=== PATIENT | female | born 1985 | race Caucasian/White ===

== ENCOUNTER 2024-12-05 09:05 | Outpatient (OUT) | payer BC, SELFPAY ==
--- OUTSIDE RECORDS SUMMARY | 2024-12-04 11:00 | XMS_ITS | Encounter Summary ---
Author Organization [facility] Address [address] [place] [address] Care Team Providers Care Cad Intern Name Role Phone Kristie Yi NP Primary Care Provider [phone] Reason for Visit * Reason Comments Well Women Visit Encounter Details Date Type Department Care Team (Latest Contact Info) Description 12/04/2024 11:00 AM EDT Procedure Visit [facility] [address] [facility] [place] [address] Gerri Syed NP [address] [facility] [place] [address] Well woman exam with routine gynecological [...] AM EDT Ancillary Procedure [facility]OM[facility]utosh [facility] [address] [place] [address] 02/15/2025 9:50 AM EST Consult DION MURDOCK [address] [place] [phone] Dawson Arrieta DO [address] [facility] [address] [place], [facility]11 documented as of this encounter Visit Diagnoses Diagnosis Well woman exam with routine gynecological exam Routine gynecological examination Encounter for screening mammogram for malignant neoplasm of breast documented in this encounter Care Teams Cad Intern Relationship Specialty Start Date End Date Kristie Yi NP [address] [place] [id number] PCP - General 11/27/24 documented as of this encounter
--- OUTSIDE RECORDS SUMMARY | 2024-12-05 08:30 | XMS_ITS | Encounter Summary ---
Author Organization [facility] Address [address] [place] [address] Care Team Providers Care Bilingual Manager Name Role Phone Kristie Yi NP Primary Care Provider [phone] Reason for Visit * Reason Comments Well Women Visit Encounter Details Date Type Department Care Team (Latest Contact Info) Description 12/05/2024 8:30 AM EDT Procedure Visit [facility] [address] [facility] [place] [phone] Dawson Arrieta DO [address] [facility] [place] [address] Well woman exam with routine gynecological exam; [...] 12:00 PM EST documented in this encounter Plan of Treatment Upcoming Encounters Date Type Department Care Team (Late st Contact Info) Description 12/18/2024 10:30 AM EDT Ancillary Procedure DION MURDOCK [address] [place] [address] [place] [phone] 02/15/2025 9:50 AM EST Consult DION MURDOCK [address] [facility] [place] [address] Dawson Arrieta DO [address] [facility] [place] [address] Scheduled Orders Name Type Priority Associated Diagnoses [...] cycle documented in this encounter Care Teams Bilingual Manager Relationship Specialty Start Date End Date Kristie Yi NP 1 [place] [address] PCP - General 11/27/24 documented as of this encounter
--- OUTSIDE RECORDS SUMMARY | 2024-12-05 09:10 | XMS_ITS | Clinical Summary ---
Author Organization [facility] Address [address] [place] [address] Care Team Providers Care Paint Stock Clerk Name Role Phone Unavailable Primary Care Provider Unavailabl e Social History Tobacco Use Types Packs/Day Years Used Date Smoking Tobacco: Never Assessed Comments Unknown Sex and Gender Information Value Date Recorded Sex Assigned at Not on file Legal Sex Female 8:17 AM EST Gender Identity Not on file Sexual Orientation Not on file Plan of Treatment Health Maintenance Due Date Last Done Comments Anxiety Screening 09/28/2001 Depression Screening 09/28/2001 HIV Screening 09/28/2001 Hepatitis C Screening 09/28/2001 DTaP,Tdap,Td Vaccine (1 - Tdap) 09/28/2002 Hepatitis B Vaccine (1 of 3 - 19+ 3-dose series) 09/28 Cervical Cancer Screening 09/28/2004 HPV Vaccine (1 - 3-dose SCDM series) 09/28/2010 Mammogram Screening 2023 Influenza Vaccine (#1) 2024 Insurance [employer] PPO
--- OUTSIDE RECORDS SUMMARY | 2024-12-05 09:10 | XMS_ITS | Encounter Summary ---
Author Organization [facility] Address [address] [place] [address] Care Team Providers Care Breast Puller Name Role Phone Kristie Yi POST COMMANDER Primary Care Provider [phone] Encounter Details Date Type Department Care Team (Late st Contact Info) Description 12/04/2024 Bamboo flowsheet NOMAshutosh MURDOCK [address] [place] [address] Gerri Syed, JOHNY [address] [facility] [place] [address] Social History Tobacco Use Types Packs/Day Years Used Date Smoking Tobacco: Never Assessed Comments Unknown Sex and Gender Information Value Date Recorded Sex Assigned at Female 10/14/2022 3:27 PM EDT Legal Sex Female 6:35 PM EDT Gender Identity Female 10/14/2022 3:27 PM EDT Sexual Orientation Straight 10/14/2022 3: 27 PM EDT documented as of this encounter Plan of Treatment Upcoming Encounters Date Type Department Care Team (Late st Contact Info) Description 12/18/2024 10:30 AM EDT Ancillary Procedure [facility] [address] [facility] [address] 02/15/2025 9:50 AM EST Consult NOMAshutosh MURDOCK [address] [place] [address] Dawson Arrieta DO [address] [place] [place] [id number] documented as of this encounter Visit Diagnoses Not on filedocumented in this encounter Care Teams Breast Puller Relationship Specialty Start Date End Date Kristie Yi NP 1 [place] [address] PCP - General 11/27/24 documented as of this encounter
--- OUTSIDE RECORDS SUMMARY | 2024-12-05 09:10 | XMS_ITS | Encounter Summary ---
Author Organization [facility] Address [address] [facility] [place] [address] Care Team Providers Care Oxygen Equipment Aide Name Role Phone Kristie Yi NP Primary Care Provider [phone] Encounter Details Date Type Department Care Team (Latest Contact Info) Description 12/05/2024 Travel Social History Tobacco Use Types Packs/Day Years [...] Description 12/18/2024 10:30 AM EDT Ancillary Procedure IDON MURDOCK [address] [facility] [place] [address] 02/15/2025 9:50 AM EST Consult DION MURDOCK [address] [facility] [place] [address] Dawson Arrieta DO [address] [place] [id number] documented as of this encounter Visit Diagnoses Not on filedocumented in this encounter Care Teams Oxygen Equipment Aide Relationship Specialty Start Date End Date Kristie Yi NP 1 [place] [id number] PCP - General 11/27/24 documented as of this encounter
--- OUTSIDE RECORDS SUMMARY | 2024-12-05 09:10 | XMS_ITS | Clinical Summary ---
Author Organization [facility] tem Address [id number] [address] [place] [address] Care Team Providers Care Lint Cleaner Name Role Phone Cipriano Sawyer MD Primary Care Provider [phone] Allergies Active Allergy Reactions Criticality Noted Date Comments Iodinated Contrast Media Angioedema High 11/15/2020 Oxycodone-Acetaminophen Vomiting Low 07/31/2012 Medications LORazepam (ATIVAN) 0.5 mg tablet Take 0.5 mg by mouth every 6 (six) hours as needed for anxiety. Active buPROPion (WELLBUTRIN) 100 mg tablet Take 100 mg by mouth 2 (two) times a day. Active omeprazole (PriLOSEC) 20 mg capsule Take 20 mg by mouth daily. Active semaglutide (WEGOVY SUBQ) Inject under the skin. Active linaCLOtide (LINZESS) 145 mcg capsule Take 145 mcg by mouth daily. Active Social History Tobacco Use Types Packs/Day Years Used Date Smoking Tobacco: Never Smokeless Tobacco: Never Alcohol Use Standard Drinks/Week Comments Not Currently 0 (1 standard drink = 0.6 oz pur e alcohol) Comments No Sex and Gender Information Value Date Recorded Sex Assigned at Not on file Legal Sex Female 8:39 PM EDT Gender Identity Not on file Sexual Orientation Not on file Last Filed Vital Signs Vital Sign Reading Time Taken Comments Blood Pressure 134/89 11/15/2020 10:09 PM EDT Pulse 69 11/15/2020 10:50 PM EDT Temperature 36.7 C (98.1 F) 11/15/2020 8:42 PM EDT Respiratory Rate 20 11/15/2020 10:50 PM EDT Oxygen Saturation 99% 11/15/2020 10:09 PM EDT Inhaled Oxygen Concentration - - Weight 81.6 kg (180 lb) 11/15/2020 8:42 PM EDT Height 170.2 cm (5' 7 ) 11/15/2020 8:42 PM EDT Body Mass Index 28.19 11/15/2020 8:42 PM EDT Plan of Treatment Health Maintenance Due Date Last Done Comments Depression Screening 1995 Tobacco Screening 1995 Adult BMI Screening 09/28/2001 DTaP,Tdap and Td Vaccines (1 - Tdap) 09/28/2002 Pap Smear 09/28/2004 Influenza Vaccine 11/27/2024 Medical Devices Not on file Insurance [employer] Care Teams Lint Cleaner Relationship Specialty Start Date End Date Cipriano Sawyre MD [address] [place] [address] PCP - General Family Medicine 11/15/20
--- OUTSIDE RECORDS SUMMARY | 2024-12-05 09:10 | XMS_ITS | Clinical Summary ---
Author Organization [facility] Address [address] [place] [address] Care Team Providers Care Media Supervisor Name Role Phone Kristie Yi NP Primary Care Provider [phone] Allergies Active Allergy Reactions Criticality Noted Date Comments Iodinated Contrast Media Swelling,Angioedema High Oxycodone-Acetaminophen GI intolerance Low 08/01/19 13 Medications omeprazole (PriLOSEC) [address] capsule Take 40 mg by mouth Daily Active hydrOXYzine HCl (Atarax) 10 MG tablet TAKE 2 TABLETS BY MOUTH THREE TIMES DAILY NEEDED FOR ANXIETY Active DayVigo 5 MG tablet Take 5 mg by mouth at bedtime 11/08/2024 Active lisdexamfetamin e (Vyvanse) 40 MG capsule Take 40 mg by mouth Daily 11/08/2024 Active amphetamine-dex troamphetamine (Adderall) 5 MG tablet TAKE 1 TABLET BY MOUTH ONCE DAILY WITH LUNCH 11/08/2024 Active Encounters Date Type Department Care Team Description 12/05/2024 8:30 AM EDT Procedure Visit NOMAshutosh MURDOCK [address] [place] [address] Dawson Arrieta DO Well woman exam with routine gynecological exam; Encounter for screening mammogram for malignant neoplasm of breast; Menorrhagia with irregular cycle 12/05/2024 Travel 12/04/2024 11:00 AM EDT [place] [address] Gerri Syed NP Well woman exam with routine gynecological exam; Encounter for screening mammogram for malignant neoplasm of breast 12/04/2024 Bamboo flowsheet DION MURDOCK [address] [place] [address] [place] [phone] Gerri Syed NP from Last 3 Months Social History Tobacco Use Types Packs/Day Years Used Date Smoking Tobacco: Never Assessed Comments Unknown Sex and Gender Information Value Date Recorded Sex Assigned at Female 10/14/2022 3:27 PM EDT Legal Sex Female 6:35 PM EDT Gender Identity Female 10/14/2022 3:27 PM EDT Sexual Orientation Straight 10/14/2022 3: 27 PM EDT Last Filed Vital Signs Vital Sign Reading Time Taken Comments Blood Pressure 118/70 12/05/2024 8:29 AM EDT Pulse - - Temperature - - Respiratory Rate - - Oxygen Saturation - - Inhaled Oxygen Concentration - - Weight 76.6 kg (168 lb 12.8 oz) 12/05/2024 8:29 AM EDT Height 170.2 cm (5' 7 ) 04/05/2017 12:0 0 PM EST Body Mass Index 26.44 04/05/2017 12:00 PM EST Plan of Treatment Upcoming Encounters Date Type Department Care Team (Late st Contact Info) Description 12/18/2024 10:30 AM EDT Ancillary Procedure DION MURDOCK [address] [place] [address] [place] [phone] 02/15/2025 9:50 AM EST Consult DION MURDOCK [address] [place] [address] [place] [address] Dawson Arrieta DO [address] [facility] [address] [place], [place] [phone] Insurance [facility] Care Teams Media Supervisor Relationship Specialty Start Date End Date Kristie Yi NP [address] [place] [id number] PCP - General 11/27/24
[2024-12-05 09:44] LABS: Hematocrit 39.3 % (36.0-48.0); Hemoglobin 13.5 g/dL (12.0-16.0); Immature Granulocytes Abs Auto 0.01 10^3/uL (0.00-0.03); Immature Granulocytes Pct Auto 0.2 % (0.0-0.5); Lymphocytes Absolute Auto 1.9 10^3/uL (1.2-3.8); Mean Corpuscular HGB Conc 34.4 g/dL (29.9-35.2); Mean Corpuscular Hemoglobin 29.0 pg (26.7-34.0); Mean Corpuscular Volume 84.5 fL (81.0-99.0); Platelet Count 213 10^3/uL (150-450); Red Blood Count 4.65 10^6/uL (4.20-5.40); White Blood Count 6.0 10^3/uL (4.0-11.0)
[2024-12-05 09:52] LABS: INR 1.00; Partial Thromboplastin Time 25.3 sec (22.3-36.2); Prothrombin Time 10.6 sec (9.0-11.6)
[2024-12-05 10:14] LABS: Thyroid Stimulating Hormone 1.443 uIU/mL (0.358-3.740)
== END 2024-12-05 09:06 | disposition home or self-care (01) ==
PROVIDERS: PCP Family Medicine; Visit Provider Obstetrics & Gynecology
DX: Z01.419 Encounter for gynecological examination (general) (routine) without abnormal findings (principal); N92.1 Excessive and frequent menstruation with irregular cycle
CPT/HCPCS: 36415; 83036; 84439; 84443; 84702; 85025; 85610; 85730; 88175

== ENCOUNTER 2024-12-05 12:12 | Outpatient (REF) | payer BC, SELFPAY ==
--- OUTSIDE RECORDS SUMMARY | 2024-12-04 11:00 | XMS_ITS | Encounter Summary ---
Author Organization [facility] Address [address] [place] [address] Care Team Providers Care Champion Of Sustainable Design Name Role Phone Kristie Yi NP Primary Care Provider [phone] Reason for Visit * Reason Comments Well Women Visit Encounter Details Date Type Department Care Team (Latest Contact Info) Description 12/04/2024 11:00 AM EDT Procedure Visit [facility] [address] [facility] [place] [address] Gerri Syed NP [address] [facility] [place] [address] Well woman exam with routine gynecological exam; Encounter for screening mammogram for malignant neoplasm of breast Social History Tobacco Use Types Packs/Day Years Used Date Smoking Tobacco: Never Assessed Comments Unknown Sex and Gender Information Value Date Recorded Sex Assigned at Female 10/14/2022 3:27 PM EDT Legal Sex Female 6:35 PM EDT Gender Identity Female 10/14/2022 3:27 PM EDT Sexual Orientation Straight 10/14/2022 3: 27 PM EDT documented as of this encounter Last Filed Vital Signs Vital Sign Reading Time Taken Comments Blood Pressure 114/82 12/04/2024 11:02 AM EDT Pulse - - Temperature - - Respiratory Rate - - Oxygen Saturation - - Inhaled Oxygen Concentration - - Weight 76.4 kg (168 lb 8 oz) 12/04/2024 11:02 AM EDT Height - - Body Mass Index 26.39 04/05/2017 12:00 PM EST documented in this encounter Progress Notes * Fay Ramos LPN - 12/04/2024 11:00 AM EDT Patient had to leave appointment before being seen due to needing to get to work. Cancelled out orders and NO CHARGE for visit. --Fay Faria LPN documented in this encounter Plan of Treatment Upcoming Encounters Date Type Department Care Team (Late st Contact Info) Description 12/18/2024 10:30 AM EDT Ancillary Procedure [facility] [address] [facility] [place] [address] 02/15/2025 9:50 AM EST Consult DION MURDOCK [address] [place] [phone] Dawson Arrieta DO [address] [facility] [address] [place], [facility]11 documented as of this encounter Visit Diagnoses Diagnosis Well woman exam with routine gynecological exam Routine gynecological examination Encounter for screening mammogram for malignant neoplasm of breast documented in this encounter Care Teams Champion Of Sustainable Design Relationship Specialty Start Date End Date Kristie Yi NP [address] [place] [address] [id number] PCP - General 11/27/24 documented as of this encounter
--- OUTSIDE RECORDS SUMMARY | 2024-12-05 08:30 | XMS_ITS | Encounter Summary ---
Author Organization [facility] Address [address] [place] [address] Care Team Providers Care Timber Treating Tank Operator Name Role Phone Kristie Yi NP Primary Care Provider [phone] Reason for Visit * Reason Comments Well Women Visit Encounter Details Date Type Department Care Team (Latest Contact Info) Description 12/05/2024 8:30 AM EDT Procedure Visit [facility] [address] [facility] [place] [phone] Dawson Arrieta DO [address] [facility] [place] [address] Well woman exam with routine gynecological exam; Encounter for screening mammogram for malignant neoplasm of breast; Menorrhagia with irregular cycle Social History Tobacco Use Types Packs/Day Years [...] Sign Reading Time Taken Comments Blood Pressure 118/70 12/05/2024 8:29 AM EDT Pulse - - Temperature - - Respiratory Rate - - Oxygen Saturation - - Inhaled Oxygen Concentration - - Weight 76.6 kg (168 lb 12.8 oz) 12/05/2024 8:29 AM EDT Height - - Body Mass Index 26.44 04/05/2017 12:00 PM EST documented in this encounter Progress Notes * Dedra Baker, FOURCHETTE SEWER - 12/05/2024 8:30 AM EDT Reason for Appointment: Patient ID: Amna Alvarez is a 39 y.o. female who presents for Well Women Visit Patient presents today for Annual Exam. MEDICATIONS Current Outpatient Medications Medication Instructions amphetamine-dextroamphetamine (Adderall) 5 MG tablet TAKE 1 TABLET BY MOUTH ONCE DAILY WITH LUNCH DayVigo 5 mg, Nightly hydrOXYzine HCl (Atarax) 10 MG tablet TAKE 2 TABLETS BY MOUTH THREE TIMES DAILY NEEDED FOR ANXIETY lisdexamfetamine (VYVANSE) 40 mg, Daily omeprazole (PRILOSEC) 40 mg, Daily ALLERGIES Allergies Allergen Reactions Iodinated Contrast Media Swelling and Angioedema Oxycodone-Acetaminophen GI intolerance PROBLEMS Active Ambulatory Problems Diagnosis Date Noted No Active Ambulatory Problems Resolved Ambulatory Problems Diagnosis Date Noted No Resolved Ambulatory Problems No Additional Past Medical History HISTORY PAST MEDICAL HISTORY SOCIAL HISTORY History reviewed. No pertinent past medical history. Social History Tobacco Use Smoking status: Not on file Smokeless tobacco: Not on file Substance Use Topics Alcohol use: Not on file Drug use: Not on file FAMILY HISTORY No family history on file. SURGICAL HISTORY Past Surgical History: Procedure Laterality Date ENDOMETRIAL ABLATION OTHER SURGICAL HISTORY Essure removal - Pt unsure if tubal removal REVIEW OF SYSTEMS Review of Systems: Review of Systems Constitutional: Negative. HENT: Negative. Eyes: Negative. Respiratory: Negative. Cardiovascular: Negative. Gastrointestinal: Negative. Genitourinary: Negative. Musculoskeletal: Negative. Skin: Negative. Neurological: Negative. All other systems reviewed and are negative. Hematological: Negative. Endocrine: Negative. Allergic/Immunologic: Negative. OBJECTIVE Objective: Physical Exam Constitutional: Appearance: Normal appearance. She is well-developed. Genitourinary: Vulva normal. Cardiovascular: Rate and Rhythm: Normal rate and regular rhythm. Pulmonary: Effort: Pulmonary effort is normal. Breath sounds: Normal breath sounds. Abdominal: General: Bowel sounds are normal. There is no distension. Palpations: Abdomen is soft. Tenderness: There is no abdominal tenderness. There is no guarding or rebound. Musculoskeletal: General: No swelling. Normal range of motion. Right lower leg: No edema. Left lower leg: No edema. Neurological: Mental Status: She is alert and oriented to person, place, and time. Skin: General: Skin is warm and dry. Psychiatric: Mood and Affect: Mood normal. Behavior: Behavior normal. Vitals and nursing note reviewed. Exam conducted with a otr driver present. Vitals: Estimated body mass index is 26.44 kg/m?? as calculated from the following: Height as of 18: 5' 7 . Weight as of this encounter: 168 lb 12.8 oz. BP: 118/70 No LMP recorded. ASSESSMENT & PLAN ICD-10-CM 1. Well woman exam with routine gynecological exam Z01.419 THIN PREP TIS PAP AND HR HPV DNA 2. Encounter for screening mammogram for malignant neoplasm of breast Z12.31 Bilateral screening mammogram Bilateral screening mammogram Orders Placed This Encounter Procedures Bilateral screening mammogram Annual Wellness Exam: Patient presents today for routine annual exam. Patient states she has complaints of heavy irregular bleeding, pt having periods every 2 weeks. Pt has had ablation. Pt desires surgical management. Ptgiven labs and ultrasound orders to have obtained. Pt to be scheduled for robotic hysterectomy. Pt to return for preop. Patients vitals were reviewed and within normal limits. Growth and development is noted to be appropriate for age. Menstrual history is noted to be irregular with concerns reported. No mental health concerns was expressed. Pap Smear: Speculum was inserted into the vagina and pap was obtained without difficulty. HPV testing was performed per age guideline. Patient was advised that pap results could take anywhere from 7 to 10 days to receive and our office will reach out to the patient with those once we have them. Patient can also view results via [employer]. I reinforced importance of condom use for STI prevention. Patient declined cultures to be performed with today's visit. Breast Exam: Upon examination, clinical breast exam was noted to be normal and screening mammogram was ordered and given to patient to have obtained. Patient was counseled on breast self-awareness, including the importance of knowing what is normal for her own breasts and promptly reporting any changes such as new lumps, skin dimpling, nipple discharge, or pain. Screening mammogram was recommended annually. Discussed signs and symptoms of breast cancer and when to seek medical attention. Answered all patient questions. Contraceptive Counseling (if applicable): Patient is currently using essure coils as a form of contraceptive. Follow Up: Patient is to return to our office in one year for annual exam unless needed otherwise. Documented by Dedra Baker LPN on behalf of: Dawson Arrieta DO documented in this encounter Plan of Treatment Upcoming Encounters Date Type Department Care Team (Late st Contact Info) Description 12/18/2024 10:30 AM EDT Ancillary Procedure DION MURDOCK [address] [place] [address] [place] [address] 02/15/2025 9:50 AM EST Consult DION MURDOCK [address] [place] [address] [place] [phone] Dawson Arrieta DO [address] [place] [address] [place] [address] Scheduled Orders Name Type Priority Associated Diagnoses Orde r Schedule Bilateral screening mammogram Imaging Routine Encounter for screening mammogram for malignant neoplasm of breast Expected: 12/05/2024 (Approximate), Expires: 02/04/2026 THIN PREP TIS PAP AND HR HPV DNA Pathology and Cytology Routine Well woman exam with routine gynecological exam Ordered: 12/05/2024 CBC and differential Lab Routine Menorrhagia with irregular cycle Ordered: 12/05/2024 TSH Lab Routine Menorrhagia with irregular cycle Ordered: 12/05/2024 hCG, quantitative, Lab Routine Menorrhagia with irregular cycle Ordered: 12/05/2024 Protime-INR Lab Routine Menorrhagia with irregular cycle Ordered: 12/05/2024 T4, free Lab Routine Menorrhagia with irregular cycle Ordered: 12/05/2024 APTT Lab Routine Menorrhagia with irregular cycle Expected: 12/05/2024 (Approximate), Expires: 12/05/2025 Hemoglobin A1c Lab Routine Menorrhagia with irregular cycle Ordered: 12/05/2024 US Pelvis w/ TV Imaging Routine Menorrhagia with irregular cycle Expected: 12/05/2024, Expires: 12/05/2025 documented as of this encounter Visit Diagnoses Diagnosis Well woman exam with routine gynecological exam Routine gynecological examination Encounter for screening mammogram for malignant neoplasm of breast Menorrhagia with irregular cycle documented in this encounter Care Teams Timber Treating Tank Operator Relationship Specialty Start Date End Date Kristie Yi NP 1 [place] [address] PCP - General 11/27/24 documented as of this encounter
--- OUTSIDE RECORDS SUMMARY | 2024-12-05 12:16 | XMS_ITS | Encounter Summary ---
Author Organization [facility] Address [address] [place] [address] Care Team Providers Care Electrician Wiring Name Role Phone Kristie Yi DATABASE REPORT WRITER Primary Care Provider [phone] Encounter Details Date Type Department Care Team (Late st Contact Info) Description 12/04/2024 Bamboo flowsheet NOMAshutosh MURDOCK [address] [place] [address] Gerri Syed, JOHNY [address] [facility] [place] [address] Social History Tobacco Use Types Packs/Day [...] AM EDT Ancillary Procedure DION MUR[facility]OCK [address] [facility] [place] [address] 02/15/2025 9:50 AM EST Consult NOMAshutosh MURDOCK [address] [place] [address] Dawson Arrieta DO [address] [place], [place] [phone] documented as of this encounter Visit Diagnoses Not on filedocumented in this encounter Care Teams Electrician Wiring Relationship Specialty Start Date End Date Kristie Yi NP 1 [place] [address] PCP - General 11/27/24 documented as of this encounter
--- OUTSIDE RECORDS SUMMARY | 2024-12-05 12:16 | XMS_ITS | Clinical Summary ---
Author Organization [facility] Address [address] [place] [address] Care Team Providers Care Borough Coordinator Name Role Phone Unavailable Primary Care Provider [...] Screening 2023 Influenza Vaccine (#1) 2024 Insurance [employer] PPO
--- OUTSIDE RECORDS SUMMARY | 2024-12-05 12:16 | XMS_ITS | Clinical Summary ---
Author Organization [facility] tem Address [id number] [address] [place] [address] Care Team Providers Care Tandem Mill Operator Name Role Phone Cipriano Sawyer MD Primary Care Provider [phone] Allergies Active Allergy Reactions Criticality Noted Date [...] Not on file Insurance ANTHEM Care Teams Tandem Mill Operator Relationship Specialty Start Date End Date Cipriano Sawyer MD [address] [place] [address] PCP - General Family Medicine 11/15/20
--- OUTSIDE RECORDS SUMMARY | 2024-12-05 12:16 | XMS_ITS | Encounter Summary ---
Author Organization [facility] Address [address] [place] [address] Care Team Providers Care Market Research Executive Name Role Phone Kristie Yi NP Primary Care Provider [phone] Encounter Details Date Type Department Care Team [...] AM EDT Ancillary Procedure DION MURDOCK [address] [place] [address] 02/15/2025 9:50 AM EST Consult DION MURDOCK [address] [address] Dawson Arrieta DO [address] [place] [id number] documented as of this encounter Visit Diagnoses Not on filedocumented in this encounter Care Teams Market Research Executive Relationship Specialty Start Date End Date Kristie Yi NP [address] [place] [id number] PCP - General 11/27/24 documented as of this encounter
--- OUTSIDE RECORDS SUMMARY | 2024-12-05 12:16 | XMS_ITS | Clinical Summary ---
Author Organization [facility] Address [address] [place] [address] Care Team Providers Care Juvenile Officer Name Role Phone Kristie Yi NP Primary Care Provider [phone] Allergies Active Allergy Reactions Criticality Noted Date [...] Description 12/05/2024 8:30 AM EDT Procedure Visit [facility] Carlene MURDOCK [address] [place] [phone] Dawson Arrieta DO Well woman exam with routine gynecological exam; Encounter for screening mammogram for malignant neoplasm of breast; Menorrhagia with irregular cycle 12/05/2024 Clinisync Result Encounter [facility] External Department Unsolicited Dawson Arrieta DO 12/05/2024 Travel 12/04/2024 11:00 AM EDT Procedure Visit NOMAshutosh MURDOCK [address] [place] [phone] Gerri Syed NP Well woman exam with routine gynecological exam; Encounter for screening mammogram for malignant neoplasm of breast 12/04/2024 Bamboo flowsheet NOMAshutosh MURDOCK [address] [place] [address] [place] [phone] Gerri Syed NP from Last 3 Months [...] Description 12/18/2024 10:30 AM EDT Ancillary Procedure [facility] Carlene MURD[facility] [address] [place] [address] [place] [phone] 02/15/2025 9:50 AM EST Consult DION MURDOCK [address] [place] [address] [place] [phone] Dawson Arrieta DO [address] [place], [place] [id number] Procedures Procedure Name Priority Date/Time Associated Diagnosis Comments ALL THYROXINE (T4) FREE Routine 12/05/2024 9:28 AM EDT TBH PREG QUANT HCG Routine 12/05/2024 9: 28 AM EDT ALL THYROID STIM HORMONE Routine 12/05/2024 9:28 AM EDT [facility] APTT Routine 12/05/2024 9:28 AM EDT [facility] PROTHROMBIN TIME INR W/O COUM Routine 12/05/2024 9:28 AM EDT ALL CBC WITH AUTO DIFF Routine 12/05/2024 9:28 AM EDT from Last 3 Months Results * TBH PREG QUANT HCG (12/05/2024 9:28 AM EDT) HCG QUANTITATIVE <1 mIU/mL TBH Comment: 5-50 0.2-1 WEEK 50-500 1-2 WEEKS 100-5,000 2-3 WEEKS 500-10,000 3-4 WEEKS 1,000-50,000 4-5 WEEKS 10,000-100,000 5-6 WEEKS 15,000-200,000 6-8 WEEKS 10,000-100,000 2-3 MONTHS 12/05/2024 9:28 AM EDT 12/05/2024 9:30 AM EDT Narrative CLINISYNC - 12/05/2024 10:20 AM EDT Dawson Berny DO CLINIS[facility]NC Final [facility] * [facility] PROTHROMBIN TIME INR W/O COUM (12/05/2024 9:28 AM EDT) PROTHROMBIN TIME 10.6 9.0 - 11.6 sec TBH TBH INR 1.00 TBH Comment: DESIRED INR: 2.0-3.0 CONDITIONS NOT LISTED BELOW 2.5-3.5 FOR PROSTHETIC HEART VALVE REPLACEMENT 2.5-3.5 RECURRENT THROMBOSIS 12/05/2024 9:28 AM EDT 12/05/2024 9:30 AM EDT Narrative CLINISYNC - 12/05/2024 9:54 AM EDT Dawson Berny DO CLINISYNC Final Result Performing Organization Address [facility] Co de Phone Number [facility] * [facility] APTT (12/05/2024 9:28 AM EDT) PARTIAL THROMBOPLASTIN TIME 25.3 22.3 - 36.2 sec TBH 12/05/2024 9:28 AM EDT 12/05/2024 9:30 AM EDT Narrative CLINISYNC - 12/05/2024 9:54 AM EDT Dawson Lamberto DO CLINISYNC Final Result Performing Organization Address [facility] Co de Phone Number [facility] * ALL THYROXINE (T4) FREE (12/05/2024 9:28 AM EDT) FREE T4 1.08 0.76 - 1.46 ng/dL TBH 12/05/2024 9:28 AM EDT 12/05/2024 9:30 AM EDT [facility] CLINISYNC - 12/05/2024 10:47 AM EDT Dawson Lamberto DO CLINISYNC Final Result Performing Organization Address [facility] Co de Phone Number [facility] * ALL THYROID STIM HORMONE (12/05/2024 9:28 AM EDT) THYROID STIMULATING HORMONE 1.443 0.358 - 3.740 uIU/mL TBH 12/05/2024 9:28 AM EDT 12/05/2024 9:30 AM EDT Narrative CLINISYNC - 12/05/2024 10:20 AM EDT Dawson Lamberto DO CLINISYNC Final Result Performing Organization Address [facility] Co de Phone Number [facility] * ALL CBC WITH AUTO DIFF (12/05/2024 9:28 AM EDT) [facility] TB WBC 6.0 4.0 - 11.0 10 3/uL TBH TBH RBC 4.65 4.20 - 5.40 10 6/uL TBH TBH HGB 13.5 12.0 - 16.0 g/dL TBH TBH HCT 39.3 36.0 - 48.0 % TBH TBH MCV 84.5 81.0 - 99.0 fL TBH TBH MCH 29.0 26.7 - 34.0 pg TBH TBH MCHC 34.4 29.9 - 35.2 g/dL TBH TBH RDW 12.3 11.0 - 15.0 % TBH TBH PLT 213 150 - 450 10 3/uL TBH TBH MPV 10.1 9.5 - 13.5 fL TBH NEUTROPHILS PERCENT AUTO 57.6 43.0 - 75.0 % TBH LYMPHOCYTES PERCENT AUTO 31.6 20.5 - 60.0 % TBH MONOCYTES PERCENT AUTO 6.3 1.7 - 12.0 % TBH TBH EO % 3.5 0.9 - 7.0 % TBH BASOPHILS PERCENT AUTO 0.8 0.2 - 2.0 % TBH IMMATURE GRANULOCYTES PCT AUTO 0.2 0.0 - 0.5 % TBH NEUTROPHILS ABSOLUTE AUTO 3.5 1.4 - 6.5 10 3/uL TBH LYMPHOCYTES ABSOLUTE AUTO 1.9 1.2 - 3.8 10 3/uL TBH MONOCYTES ABSOLUTE AUTO 0.4 0.3 - 0.8 10 3/uL TBH TBH EO # 0.2 0.0 - 0.7 10 3/uL TBH BASOPHILS ABSOLUTE AUTO 0.1 0.0 - 0.1 10 3/uL TBH IMMATURE GRANULOCYTES ABS AUTO 0.01 0.00 - 0.03 10 3/uL TBH 12/05/2024 9:28 AM EDT 12/05/2024 9:30 AM EDT Narrative CLINISYNC - 12/05/2024 9:45 AM EDT us Dawson Berny DO CLINISYNC Final Result [facility] from Last 3 Months Insurance [facility] Care Teams Juvenile Officer Relationship Specialty Start Date End Date Kristie Yi NP [address] [place], [place] [phone] PCP - General 11/27/24
--- OUTSIDE RECORDS SUMMARY | 2024-12-05 12:16 | XMS_ITS | Encounter Summary ---
Author Organization [facility] Address [address] [place] [address] Care Team Providers Care Gambling Cashier Name Role Phone Kristie Yi NP Primary Care Provider [phone] Encounter Details Date Type Department Care Team (Late st Contact Info) Description 12/05/2024 Clinisync Result Encounter [facility]OM[facility] External Department Unsolicited Dawson Arrieta, DO [address] [place], [facility]11 Social History Tobacco Use Types Packs/Day Years [...] AM EDT Ancillary Procedure NOMAshutosh MURDOCK [address] [place] [address] 02/15/2025 9:50 AM EST Consult NOMAshutosh MURDOCK [address] [place] [address] Dawson Arrieta DO [address] [place], [place] [id number] documented as of this encounter Procedures Procedure Name Priority Date/Time Associated Diagnosis Comments TBH PREG QUANT HCG Routine 12/05/2024 9: 28 AM EDT [facility] PROTHROMBIN TIME INR W/O COUM Routine 12/05/2024 9:28 AM EDT [facility] APTT Routine 12/05/2024 9:28 AM EDT ALL THYROXINE (T4) FREE Routine 12/05/2024 9:28 AM EDT ALL THYROID STIM HORMONE Routine 12/05/2024 9:28 AM EDT ALL CBC WITH AUTO DIFF Routine 12/05/2024 9:28 AM EDT documented in this encounter Results * ALL THYROXINE (T4) FREE (12/05/2024 9:28 AM EDT) FREE T4 1.08 0.76 - 1.46 ng/dL TB 12/05/2024 9:28 AM EDT 12/05/2024 9:30 AM EDT Narrative CLINISYNC - 12/05/2024 10:47 AM EDT us Dawson Berny DO CLINIS[facility]NC Final [facility] * TBH PREG QUANT HCG (12/05/2024 9:28 AM EDT) HCG QUANTITATIVE <1 mIU/mL TBH Comment: 5-50 0.2-1 WEEK 50-500 1-2 WEEKS 100-5,000 2-3 WEEKS 500-10,000 3-4 WEEKS 1,000-50,000 4-5 WEEKS 10,000-100,000 5-6 WEEKS 15,000-200,000 6-8 WEEKS 10,000-100,000 2-3 MONTHS 12/05/2024 9:28 AM EDT 12/05/2024 9:30 AM EDT Narrative CLINISYNC - 12/05/2024 10:20 AM EDT us Dawson Berny DO CLINISYNC Final Result [facility] * ALL THYROID STIM HORMONE (12/05/2024 9:28 AM EDT) THYROID STIMULATING HORMONE 1.443 0.358 - 3.740 uIU/mL TBH 12/05/2024 9:28 AM EDT 12/05/2024 9:30 AM EDT Narrative CLINISYNC - 12/05/2024 10:20 AM EDT Dawson Berny DO CLINISYNC Final Result [facility] * [facility] APTT (12/05/2024 9:28 AM EDT) PARTIAL THROMBOPLASTIN TIME 25.3 22.3 - 36.2 sec TB 12/05/2024 9:28 AM EDT 12/05/2024 9:30 AM EDT [facility] CLINISYNC - 12/05/2024 9:54 AM EDT Dawson Berny DO CLINISYNC Final Result [facility] * [facility] PROTHROMBIN TIME INR W/O COUM (12/05/2024 9:28 AM EDT) PROTHROMBIN TIME 10.6 9.0 - 11.6 sec TB TBH INR 1.00 TBH Comment: DESIRED INR: 2.0-3.0 CONDITIONS NOT LISTED BELOW 2.5-3.5 FOR PROSTHETIC HEART VALVE REPLACEMENT 2.5-3.5 RECURRENT THROMBOSIS 12/05/2024 9:28 AM EDT 12/05/2024 9:30 AM EDT Narrative CLINISYNC - 12/05/2024 9:54 AM EDT Dawson Berny DO CLINISYNC Final Result [facility] * ALL CBC WITH AUTO DIFF (12/05/2024 9:28 AM EDT) [facility] TB WBC 6.0 4.0 - 11.0 10 [...] - 12/05/2024 9:45 AM EDT us Dawson Arrieta DO CLINISYNC Final Result [facility] documented in this encounter Visit Diagnoses Not on filedocumented in this encounter Care Teams Gambling Cashier Relationship Specialty Start Date End Date Kristie Yi NP [address] [place] [address] PCP - General 11/27/24 documented as of this encounter
== END 2024-12-05 12:13 | disposition home or self-care (01) ==
LOC: LAB 12:12
PROVIDERS: PCP Family Medicine; Visit Provider Obstetrics & Gynecology
DX: Z01.419 Encounter for gynecological examination (general) (routine) without abnormal findings (principal)
CPT/HCPCS: 88175

== ENCOUNTER 2024-12-12 10:31 | Outpatient (OUT) | payer BC, SELFPAY ==
--- NOTE | 2024-12-12 10:36 | MM_ITS ---
Patient Name: JUANJOSE CAVAZOS MR#: [id number] : 1985 Exam Date: 12/12/2024 Ordering Doctor: DR HELEN GIBSON . RADIOLOGY REPORT PROCEDURE: MM TOMOSYNTHESIS SCREENING BI COMPARISON: MG MAMM DIAGNOSTIC 3D CLAUDIA CAD, 07/06/2022. MAMMO POST BIOPSY LEFT, 03/07/2021. MG MAMM DIAGNOSTIC 3D CLAUDIA CAD, 02/13/2021. INDICATIONS: Screening Calculator Name NCI Breast Cancer Risk Assessment Tool 5 Year Breast Cancer Risk 2.00% Lifetime Breast Cancer Risk 18.90% Personal Breast Cancer No Personal Ovarian Cancer No Treatments None Family Cancers Grandmother-maternal with breast cancer at age 60; Aunt-maternal with pancreatic cancer at age 60; Aunt-maternal with pancreatic cancer at age ~60; Grandfather-paternal with sarcoma cancer at age 70. LOCATION: [facility] BREAST COMPOSITION: The breasts are heterogeneously dense, which may obscure small masses. FINDINGS: RIGHT BREAST: No significant suspicious finding. LEFT BREAST: No significant suspicious finding. DIAGNOSTIC CATEGORY 1--NEGATIVE. RECOMMENDATIONS: ROUTINE MAMMOGRAM AND CLINICAL EVALUATION IN 12 MONTHS. Dictated by: Shar Raymond MD on 12/12/2024 at 12:28 Approved by: Shar Raymond MD on 12/12/2024 at 12:33
== END 2024-12-12 10:32 | disposition home or self-care (01) ==
LOC: MAMMO 10:31
PROVIDERS: PCP Family Medicine; Visit Provider Obstetrics & Gynecology
DX: Z12.31 Encounter for screening mammogram for malignant neoplasm of breast (principal); Z80.3 Family history of malignant neoplasm of breast; Z80.8 Family history of malignant neoplasm of other organs or systems
CPT/HCPCS: 77063; 77067

== ENCOUNTER 2025-03-01 08:43 | Outpatient (OUT) | payer BC, SELFPAY ==
--- OUTSIDE RECORDS SUMMARY | 2025-02-15 09:50 | XMS_ITS | Encounter Summary ---
Author Organization [facility] Address [address] [place] [address] Care Team Providers Care Air Compressor Mechanic Name Role Phone Kristie Yi NP Primary Care Provider [phone] Reason for Visit * ReasonCommentsPre-op Visit Encounter Details DateTypeDepartmentCare Team (Latest Contact Info)Oigiwmlkyys67/20/2025 9:50 AM ESTConsult DION Concepcion OBGYN [address] [facility] [address] Dawson Arrieta DO [address] [facility] [address] [place], [facility] Menorrhagia with irregular cycle; History of endometrial ablation Social History Tobacco UseTypesPacks/DayYears UsedDateSmoking Tobacco: Never Assessed CommentsUnknownSex and Gender InformationValueDate RecordedSex Assigned at Qhujqc9010/14/2022 3:27 PM EDTLegal MzoOkrzmz37/15/2023 6:35 PM EDTGender Identity Cgznxr6110/14/2022 3:27 PM EDTSexual ArwtijlniqbJniyvkuw73/19/2023 3:27 PM EDT documented as of this encounter Last Filed Vital Signs Vital SignReadingTime TakenCommentsBlood Kznpntvw140/80104/17/2024 9:51 AM EST Pulse--Temperature--Respiratory Rate--Oxygen Saturation--Inhaled Oxygen Concentration--Lsianp71 kg (169 lb 12 oz)02/15/2025 9:51 AM ESTHeight--Body Mass Index26.5901 12:00 PM ESTdocumented in this encounter Progress Notes * Fay Ramos, GLOBE MOUNTER - 02/15/2025 9:50 AM EST Reason for Appointment: Patient ID: Amna Alvarez is a 39 y.o. female who presents for Pre-op Visit Patient presents today for Pre Op appointment. Patient is scheduled to undergo Da Alannah assisted Laparoscopic Hysterectomy, possible exploratory laparotomy, possible BSO, possible cystoscopy on 03/15/[address] Arrieta at [facility]. MEDICATIONS Current Outpatient Medications Medication Instructions amphetamine-dextroamphetamine [...] PROBLEMS Active Ambulatory Problems Diagnosis Date Noted Menorrhagia with irregular cycle 02/15/2025 History of endometrial ablation 02/15/2025 Resolved Ambulatory Problems Diagnosis Date Noted No Resolved Ambulatory Problems No Additional Past Medical History HISTORY PAST MEDICAL HISTORY SOCIAL HISTORY No past medical history on file. Social History Tobacco Use Smoking status: Not on file Smokeless tobacco: Not on file Substance Use Topics Alcohol use: Not on file Drug use: Not on file FAMILY HISTORY No family history on file. SURGICAL HISTORY Past Surgical History: Procedure Laterality Date ENDOMETRIAL ABLATION 03/04/2021 (Yasmine) performed at [facility] by Dr. Dawson Arrieta OTHER SURGICAL HISTORY Essure Coil Removal - Pt unsure if tubal removal TUBAL LIGATION Bilateral 08/07/2011 Essure Coil Placement performed at [facility] by Dr. Dawson Arrieta REVIEW OF SYSTEMS Review of Systems: Review of Systems Constitutional: Negative. HENT: Negative. Eyes: Negative. Respiratory: Negative. Cardiovascular: Negative. Gastrointestinal: Negative. Genitourinary: Positive for menstrual problem, pelvic pain and vaginal bleeding. Musculoskeletal: Negative. Skin: Negative. Neurological: Negative. All other systems reviewed and are negative. Hematological: Negative. Endocrine: Negative. Allergic/Immunologic: Negative. OBJECTIVE Objective: Physical Exam Constitutional: Appearance: Normal appearance. She is well-developed. Cardiovascular: Rate and Rhythm: Normal rate and [...] nursing note reviewed. Exam conducted with a waste removalist present. Vitals: Estimated body mass index is 26.59 kg/m?? as calculated from the following: Height as of 04/05/17: 5' 7 . Weight as of this encounter: 169 lb 12 oz. BP: 130/80 No LMP recorded (lmp unknown). Assessment/Plan ICD-10-CM 1. Menorrhagia with irregular cycle N92.1 2. History of endometrial ablation Z98.890 Assessment/Plan Pre Op: Patient is doing well but has complaints of menorrhagia after failed endometrial ablation. I have discussed conservative management vs. surgical management with the patient in detail and patient desires surgical management at this time. Patient will undergo Da Alannah assisted Laparoscopic Hysterectomy, possible exploratory laparotomy, possible BSO, possible cystoscopy on 03/15/25. Surgical consents were signed, mmc was reviewed, and patient is to proceed to [facility] OR. Follow Up: Patient is to follow up at 1 & 6 weeks post operative to assess proper healing and recovery from procedure. Documented by Fay Ramos LPN on behalf of: Dawson Arrieta DO documented in this encounter Plan of Treatment DateTypeDepartmentCare Team (Latest Contact Info)Ukyxwfhaivd56/29/2025 1:30 PM ESTOffice Visit N[facility] Carlene OBGYSaeed [address] [place] [address] [place] [address] Jeanne Palomino PA [address] [place] [address] [place] [address] documented as of this encounter Visit Diagnoses Diagnosis Menorrhagia with irregular cycle History of endometrial ablation documented in this encounter Care Teams Team MemberRelationshipSpecialtyStart DateEnd Date Kristie Yi NP [address] [place], [place] [id number] PCP - General11/27/24documented as of this encounter
--- OUTSIDE RECORDS SUMMARY | 2025-03-01 08:46 | XMS_ITS | Clinical Summary ---
Author Organization [facility] tem Address [id number] [address] [place] [address] Care Team Providers Care Balance Staff Staker Name Role Phone Cipriano Sawyer MD Primary Care Provider [phone] Allergies Active AllergyReactionsCriticalityNoted DateCommentsIodinated Contrast Media LpkpusdrnnVzae55/20/2021Oxycodone-PkauvpfpncrmqCsugpkmsBdv94/05/2013 Medications MedicationSigDispense QuantityRefillsLast FilledStart DateEnd DateStatus LORazepam (ATIVAN) 0.5 mg tablet Take 0.5 mg by mouth every 6 (six) hours as needed for anxiety.Active buPROPion (WELLBUTRIN) 100 mg tablet Take 100 mg by mouth 2 (two) times a day.Active omeprazole (PriLOSEC) 20 mg capsule Take 20 mg by mouth daily.Active semaglutide (WEGOVY SUBQ) Inject under the skin.Active linaCLOtide (LINZESS) 145 mcg capsule Take 145 mcg by mouth daily.Active Social History Tobacco UseTypesPacks/DayYears UsedDateSmoking Tobacco: NeverSmokeless Tobacco: NeverAlcohol UseStandard Drinks/WeekCommentsNot Currently0 (1 standard drink = 0.6 oz pure alcohol)CommentsNoSex and Gender InformationValueDate RecordedSex Assigned at BirthNot on fileLegal GckEcuyoi55/20/2021 8:39 PM EDT Gender IdentityNot on fileSexual OrientationNot on file Last Filed Vital Signs Vital SignReadingTime TakenCommentsBlood Sfyyuvce856/8911/15/2020 10:09 PM EDT Jwphx549511/15/2020 10:50 PM GRKWbdekegmluq31.7 ??C (98.1 ??F)11/15/2020 8:42 PM EDTRespiratory Rzxd2746 10:50 PM EDTOxygen Wxvkvhtboq87%11/15/2020 10:09 PM EDTInhaled Oxygen Concentration--Aumxoh56.6 kg (180 lb)11/15/2020 8:42 PM EDT Bhqtvt768.2 cm (5' 7 )11/15/2020 8:42 PM EDTBody Mass Index28.19011/15/2020 8:42 PM EDT Plan of Treatment Health MaintenanceDue DateLast DoneCommentsDepression Wxefopgch74/03/1996Tobacco Sfyajhtjp35/03/1996Adult BMI Gmiypawgo71/03/2002DTaP,Tdap and Td Vaccines (1 - Tdap)09/28/2002Pap Smear09/28/2004Influenza Tveumgo8611/27/2024 Medical Devices Not on file Insurance Care Teams Team MemberRelationshipSpecialtyStart DateEnd Cipriano Sawyer MD [address] [place] [address] PCP - GeneralFamily Medicine11/15/20
--- OUTSIDE RECORDS SUMMARY | 2025-03-01 08:46 | XMS_ITS | Clinical Summary ---
Author Organization [facility] Address [address] [place] [address] Care Team Providers Care Agricultural Science Professor Name Role Phone Kristie Yi NP Primary Care Provider [phone] Allergies Active AllergyReactionsCriticalityNoted DateCommentsIodinated Contrast Media Swelling,PdmwftfbfxYzrn19/20/2021Oxycodone-AcetaminophenGI intoleranceLow 07/31/2012 Medications MedicationSigDispense QuantityRefillsLast FilledStart DateEnd DateStatus omeprazole (PriLOSEC) [address] capsule Take 40 mg by mouth DailyActive hydrOXYzine HCl (Atarax) 10 MG tablet TAKE 2 TABLETS BY MOUTH THREE TIMES DAILY NEEDED FOR ANXIETYActive DayVigo 5 MG tablet Take 5 mg by mouth at aiwekdu87/13/2025Active lisdexamfetamine (Vyvanse) 40 MG capsule Take 40 mg by mouth Daily5Active amphetamine-dextroamphetamine (Adderall) 5 MG tablet TAKE 1 TABLET BY MOUTH ONCE DAILY WITH LUNCH5Active Active Problems ProblemNoted DateDiagnosed DateMenorrhagia with irregular cycle02/15/2025History of endometrial zggobdhd75/20/2025 Encounters DateTypeDepartmentCare VsejKizcmbpqnrd26/20/2025 9:50 AM ESTConsult DION MURDOCK [address] [place] [address] Helen Arrieta, DO Menorrhagia with irregular cycle; History of endometrial /20/2025amboo flowsheet NOMAshutosh MURDOCK [address] [place] [address] Helen Arrieta, DO 02/14/20252156Ulpsnx64/22/2025 10:30 AM EDTAncillary Procedure [facility] Carlene MUR[facility] [address] [place] [address] Menorrhagia with irregular cycle12/12/2024Orders Only [facility]ene [place] [phone] Juli Escobar LPN 5Clinisync Result Encounter [facility]OMS External Department Unsolicited Helen Arrieta, DO 12/11/20243678Elinyd01/09/2025 8:30 AM EDTProcedure Visit [facility] Carlene MURD[facility] [address] [place] [address] Helen Arrieta, DO Well woman exam with routine gynecological exam; Encounter for screening mammogram for malignant neoplasm of breast; Menorrhagia with irregular cycle5Clinisync Result Encounter [facility]S External Department Unsolicited Helen Arrieta, DO 12/05/20244525Bybzza90/08/2025 11:00 AM EDTProcedure Visit [facility] [place] [address] Gerri Syed NP Well woman exam with routine gynecological exam; Encounter for screening mammogram for malignant neoplasm of vqjyax5912/04/2024 Bamboo flowsheet [facility] Carlene M[facility] [address] [place] [address] Gerri Syed, JOHNY from Last 3 Months Social History Tobacco UseTypesPacks/DayYears UsedDateSmoking Tobacco: Never Assessed CommentsNoSex and Gender InformationValueDate RecordedSex Assigned at Jrigoi3610/14/2022 3:27 PM EDTLegal AbfTfhhwe77/15/2023 6:35 PM EDTGender Identity Fgqvpg5210/14/2022 3:27 PM EDTSexual McecmcwwxuvGcvbxbuj75/19/2023 3:27 PM EDT Last Filed Vital Signs Vital SignReadingTime TakenCommentsBlood Parxwnoy827/80104/17/2024 9:51 AM EST Pulse--Temperature--Respiratory Rate--Oxygen Saturation--Inhaled Oxygen Concentration--Mzitzs42 kg (169 lb 12 oz)02/15/2025 9:51 AM WMQPydahn432.2 cm (5' 7 )04/05/2017 12:00 PM ESTBody Mass Index26.59004/05/2017 12:00 PM EST Plan of Treatment DateTypeDepartmentCare Team (Latest Contact Info)Joqklkykuhk66/29/2025 1:30 PM ESTOffice Visit [facility] [address] [facility] [place] [address] Jeanne Palomino PA [address] [address] Procedures Procedure NamePriorityDate/TimeAssociated DiagnosisCommentsUS PELVIC COMPLETE W/ ABLnwbdil20/22/2025 10:42 AM EDT Menorrhagia with irregular cycle MM TOMOSYNTHESIS SCREENING BI12/12/2024 12:33 PM EDT MLR HEMOGLOBIN F4EYrtafkp29/09/2025 9:28 AM EDT ALL THYROXINE (T4) WENDRfmsthe12/09/2025 9:28 AM EDT TBH PREG QUANT GBHOqtujet83/09/2025 9:28 AM EDT ALL THYROID STIM EWSIAXQRlfflop75/09/2025 9:28 AM EDT [facility] DUXZGccfdxc32/09/2025 9:28 AM EDT SRMCOH PROTHROMBIN TIME INR W/O RLRJLjmiqof78/09/2025 9:28 AM EDT ALL CBC WITH AUTO HBQSTqygyew85/09/2025 9:28 AM EDT IGP,APTIMA HPV,AGE VHULFclvqpm57/09/2025 8:24 AM EDT PAP SFNJNUttdtzi61/09/2025 12:00 AM EDTfrom Last 3 Months Results * US Pelvis w/ TV (12/18/2024 10:42 AM EDT)Anatomical RegionLateralityModality PelvisUltrasoundSpecimen (Source)Anatomical Location / LateralityCollection Method / VolumeCollection TimeReceived Time12/18/2024 1:44 PM EDT Impressions 12/18/2024 1:55 PM EDT Normal pelvic ultrasound TRANSCRIBED BY: ? ELECTRONICALLY SIGNED BY: Stef Rubi MD Narrative 12/18/2024 1:55 PM EDT FINDINGS: Uterus ? 7.9 x 3.6 x 5.5 cm Endometrium ?7 mm Right ovary ? 4.4 x 2.3 x 2.3 cm Left ovary ?2.7 x 1.8 x 2.5 cm The uterus is normal in size and orientation. ??No worrisome mass lesions are seen. ??Endometrium appears unremarkable. ??No fluid is seen within the cul-de-sac. ??Both ovaries appear normal for thisage. Procedure Note Stef Rubi MD - 12/18/2024 FINDINGS: Uterus 7.9 x 3.6 x 5.5 cm Endometrium 7 mm Right ovary 4.4 x 2.3 x 2.3 cm Left ovary 2.7 x 1.8 x 2.5 cm The uterus is normal in size and orientation. No worrisome mass lesionsare seen. Endometrium appears unremarkable. No fluid is seen within slmgwp-dp-yqd. Both ovaries appear normal for this age. IMPRESSION: Normal pelvic ultrasound TRANSCRIBED BY: ELECTRONICALLY SIGNED BY: Stef Rubi MD Authorizing ProviderResult TypeResult StatusCorey Berny [facility] US PROCEDURESFinal Result * MM TOMOSYNTHESIS SCREENING BI (12/12/2024 12:33 PM EDT)Anatomical Region LateralityModalityOtherSpecimen (Source)Anatomical Location / Laterality Collection Method / VolumeCollection TimeReceived Time12/12/2024 12:33 PM EDT Narrative 12/12/2024 12:34 PM EDT [facility] ?[address] ? [place], [facility] ? Mammography Report ? Signed ? Patient: DIRK,AMNA M ?MR#: [id number] ?? : 1985 ?Acct:[id number] ?? Age/Sex: 39 / F ?ADM Date: 12/12/24 ?? Loc: MAMMO ? Attending Dr: Helen Arrieta D.O. ? Ordering Physician: Helen Arrieta D.O. ?Results: ? Date of Service: 12/12/24 ?Follow Up: ? Procedure(s): MM tomosynthesis screening BI ?? Accession Number(s): [id number] ? cc: Helen Arrieta D.O.; NAHUM DACOSTA ? Patient Name: ? AMNA ALVAREZ ? MR#: [id number] ? : 1985 ? Exam Date: 12/12/2024 ?? Ordering Doctor: DR HELEN ARRIETA . ? RADIOLOGY REPORT ? PROCEDURE: ? MM TOMOSYNTHESIS SCREENING BI ? COMPARISON: ? MG MAMM DIAGNOSTIC 3D CLAUDIA CAD, 07/06/2022. ??MAMMO POST BIOPSY ?? LEFT, 03/07/2021. ??MG MAMM DIAGNOSTIC 3D CLAUDIA CAD, 02/13/2021. ? INDICATIONS: ? Screening ? Calculator Name ? NCI Breast Cancer Risk Assessment Tool ?? 5 Year Breast Cancer Risk ? 2.00% ?? Lifetime Breast Cancer Risk ? 18.90% ?? Personal Breast Cancer ?No ?? Personal Ovarian Cancer ? No ?? Treatments ? None ?? Family Cancers ? Grandmother-maternal with breast cancer at age 60; ?? Aunt-maternal with pancreatic cancer at age 60; Aunt-maternal with pancreatic ?? cancer at age ??60; Grandfather-paternal with sarcoma cancer at age 70. ? LOCATION: ? [facility] ? BREAST COMPOSITION: ? The breasts are heterogeneously dense, which may ?? obscure small masses. ? FINDINGS: ? RIGHT BREAST: ??No significant suspicious finding. ? LEFT BREAST: ??No significant suspicious finding. ? DIAGNOSTIC CATEGORY 1--NEGATIVE. ? RECOMMENDATIONS: ? ROUTINE MAMMOGRAM AND CLINICAL EVALUATION IN 12 MONTHS. ? Dictated by: Shar Raymond MD on 12/12/2024 at 12:28 ? Approved by: Shar Raymond MD on 12/12/2024 at 12:33 ? Dictated By: ?Shar Raymond M.D. ? Signed By: ?12/12/24 1234 ? DD/ 1233 ? TD/TT: ? Policy Adviser: Procedure Note Radiology, Radiologist, MD - 12/12/2024 [place] [address] Mammography Report Signed Patient: AMNA ALVAREZ MMR#: [id number] : 1985Acct:[id number] Age/Sex: 39 / FADM Date: 12/12/24 Loc: MAMMO Attending Dr: Helen Arrieta D.O. Ordering Physician: Helen Arrieta D.O.Results: Date of Service: 12/12/24Follow Up: Procedure(s): MM tomosynthesis screening BI Accession Number(s): [id number] cc: Helen Arrieta D.O.; NAHUM DACOSTA Patient Name: AMNA ALVAREZ MR#: [id number] : 1985 Exam Date: 12/12/2024 Ordering Doctor: DR HELEN ARRIETA . RADIOLOGY REPORT PROCEDURE: MM TOMOSYNTHESIS SCREENING BI COMPARISON: MG MAMM DIAGNOSTIC 3D CLAUDIA CAD, 07/06/2022. MAMMO POSTBIOPSY LEFT, 03/07/2021. MG MAMM DIAGNOSTIC 3D CLAUDIA CAD, 02/13/2021. INDICATIONS: Screening Calculator Name NCI Breast Cancer Risk Assessment Tool 5 Year Breast Cancer Risk 2.00% Lifetime Breast Cancer Risk 18.90% Personal Breast Cancer No Personal Ovarian Cancer No Treatments None Family Cancers Grandmother-maternal with breast cancer at age 60; Aunt-maternal with pancreatic cancer at age 60; Aunt-maternal withpancreatic cancer at age 60; Grandfather-paternal with sarcoma cancer at age 70. LOCATION: [facility] BREAST COMPOSITION: The breasts are heterogeneously dense, which may obscure small masses. FINDINGS: RIGHT BREAST: No significant suspicious finding. LEFT BREAST: No significant suspicious finding. DIAGNOSTIC CATEGORY 1--NEGATIVE. RECOMMENDATIONS: ROUTINE MAMMOGRAM AND CLINICAL EVALUATION IN 12 MONTHS. Dictated by: Shar Raymond MD on 12/12/2024 at 12:28 Approved by: Shar Raymond MD on 12/12/2024 at 12:33 Dictated By: Shar Raymond M.D. Signed By:12/12/24 1234 DD/ 1233 TD/TT: Policy Adviser: Authorizing ProviderResult TypeResult StatusCorey Berny DOCLINISYNC IMAGINGFinal Result * TBH PREG QUANT HCG (12/05/2024 9:28 AM EDT)ComponentValueRef RangeTest Method Analysis TimePerformed AtPathologist SignatureHCG QUANTITATIVE<1mIU/mLTBH Comment: 5-50 ? 0.2-1 WEEK 50-500 ? 1-2 WEEKS 100-5,000 ?2-3 WEEKS 500-10,000 ? 3-4 WEEKS 1,000-50,000 ?? 4-5 WEEKS 10,000-100,000 5-6 WEEKS 15,000-200,000 6-8 WEEKS 10,000-100,000 2-3 MONTHS Specimen (Source)Anatomical Location / LateralityCollection Method / Volume Collection TimeReceived Time12/05/2024 9:28 AM EDT12/05/2024 9:30 AM EDT Narrative [facility] - 12/05/2024 10:20 AM EDT Authorizing ProviderResult TypeResult StatusCorey Berny DOCLINISYNCFinal Result Performing OrganizationAddressCity/State/ZIP CodePhone Number [facility] * SRMCOH PROTHROMBIN TIME INR W/O COUM (12/05/2024 9:28 AM EDT)ComponentValueRef RangeTest MethodAnalysis TimePerformed AtPathologist SignaturePROTHROMBIN TIME 10.69.0 - 11.6 secTBHTBH INR1.00TBHComment: DESIRED INR: 2.0-3.0 CONDITIONS NOT LISTED BELOW 2.5-3.5 FOR PROSTHETIC HEART VALVE REPLACEMENT 2.5-3.5 RECURRENT THROMBOSIS Specimen (Source)Anatomical Location / LateralityCollection Method / Volume Collection TimeReceived Time12/05/2024 9:28 AM EDT12/05/2024 9:30 AM EDT Narrative [facility] - 12/05/2024 9:54 AM EDT Authorizing ProviderResult TypeResult StatusCorey Berny DOCLINISYNCFinal Result Performing OrganizationAddGuthrie Robert Packer Hospitalty/State/ZIP CodePhone Number [facility] * MLR HEMOGLOBIN A1C (12/05/2024 9:28 AM EDT)ComponentValueRef RangeTest Method Analysis TimePerformed AtPathologist SignatureGLYCOHEMOGLOBIN A1C5.14.5 - 6.2 %TBHComment: ADA RECOMMENDED LIMIT 4.0 - 6.0 ADA THERAPEUTIC TARGET < 7.0 ACTION SUGGESTED > 7.0 ESTIMATED AVERAGE QUZHYBH398oe/dLTBHSpecimen (Source)Anatomical Location / LateralityCollection Method / VolumeCollection TimeReceived Time12/05/2024 9:28 AM EDT12/05/2024 9:30 AM EDT Narrative [facility] - 12/05/2024 12:36 PM EDT Authorizing ProviderResult TypeResult StatusCorey Berny DOCLINISYNCFinal Result Performing OrganizationAddGuthrie Robert Packer Hospitalty/State/ZIP CodePhone Number [facility] * CCF APTT (12/05/2024 9:28 AM EDT)ComponentValueRef RangeTest MethodAnalysis TimePerformed AtPathologist SignaturePARTIAL THROMBOPLASTIN TIME25.322.3 - 36.2 secTBHSpecimen (Source)Anatomical Location / LateralityCollection Method / VolumeCollection TimeReceived Time12/05/2024 9:28 AM EDT12/05/2024 9:30 AM EDT Narrative [facility] - 12/05/2024 9:54 AM EDT Authorizing ProviderResult TypeResult StatusCorey Berny DOCLINISYNCFinal Result Performing OrganizationAddGuthrie Robert Packer Hospitalty/State/ZIP CodePhone Number [facility] * ALL THYROXINE (T4) FREE (12/05/2024 9:28 AM EDT)ComponentValueRef RangeTest MethodAnalysis TimePerformed AtPathologist SignatureFREE T41.080.76 - 1.46 ng/dLTBHSpecimen (Source)Anatomical Location / LateralityCollection Method / VolumeCollection TimeReceived Time12/05/2024 9:28 AM EDT12/05/2024 9:30 AM EDT [facility] - 12/05/2024 10:47 AM EDT Authorizing ProviderResult TypeResult StatusCorey Berny DOCLINISYNCFinal Result Performing OrganizationAddGuthrie Robert Packer Hospitalty/State/ZIP CodePhone Number [facility] * ALL THYROID STIM HORMONE (12/05/2024 9:28 AM EDT)ComponentValueRef RangeTest MethodAnalysis TimePerformed AtPathologist SignatureTHYROID STIMULATING HORMONE1.4430.358 - 3.740 uIU/mLTBHSpecimen (Source)Anatomical Location / LateralityCollection Method / VolumeCollection TimeReceived Time12/05/2024 9:28 AM EDT12/05/2024 9:30 AM EDT [facility] - 12/05/2024 10:20 AM EDT Authorizing ProviderResult TypeResult StatusCorey Berny DOCLINISYNCFinal Result Performing OrganizationAddressCity/State/ZIP CodePhone Number [facility] * ALL CBC WITH AUTO DIFF (12/05/2024 9:28 AM EDT)ComponentValueRef RangeTest MethodAnalysis TimePerformed AtPathologist SignatureTBH WBC6.04.0 - 11.0 10 3/uLTBHTBH RBC4.654.20 - 5.40 10 6/uLTBHTBH HGB13.512.0 - 16.0 g/dLTBHTBH HCT 39.336.0 - 48.0 %TBHTBH MCV84.581.0 - 99.0 fLTBHTBH MCH29.026.7 - 34.0 pgTBH TBH MCHC34.429.9 - 35.2 g/dLTBHTBH RDW12.311.0 - 15.0 %TBHTBH FUS338306 - 450 10 3/uLTBHTBH MPV10.19.5 - 13.5 fLTBHNEUTROPHILS PERCENT AUTO57.643.0 - 75.0 % TBHLYMPHOCYTES PERCENT AUTO31.620.5 - 60.0 %TBHMONOCYTES PERCENT AUTO6.31.7 - 12.0 %TBHTBH EO %3.50.9 - 7.0 %TBHBASOPHILS PERCENT AUTO0.80.2 - 2.0 %TBH IMMATURE GRANULOCYTES PCT AUTO0.20.0 - 0.5 %TBHNEUTROPHILS ABSOLUTE AUTO3.51.4 - 6.5 10 3/uLTBHLYMPHOCYTES ABSOLUTE AUTO1.91.2 - 3.8 10 3/uLTBHMONOCYTES ABSOLUTE AUTO0.40.3 - 0.8 10 3/uLTBHTBH EO #0.20.0 - 0.7 10 3/uLTBHBASOPHILS ABSOLUTE AUTO0.10.0 - 0.1 10 3/uLTBHIMMATURE GRANULOCYTES ABS AUTO0.010.00 - 0.03 10 3/uLTBHSpecimen (Source)Anatomical Location / LateralityCollection Method / VolumeCollection TimeReceived Time12/05/2024 9:28 AM EDT12/05/2024 9:30 AM EDT Narrative [facility] - 12/05/2024 9:45 AM EDT Authorizing ProviderResult TypeResult StatusCorey Berny DOCLINISYNCFinal Result Performing OrganizationAddressCity/State/ZIP CodePhone Number [facility] * IGP,APTIMA HPV,AGE GDLN (12/05/2024 8:24 AM EDT)ComponentValueRef RangeTest MethodAnalysis TimePerformed AtPathologist SignatureAGE GDLN ACOG TESTINGNote. TBHComment: ?? TESTS ? RESULT ??FLAG ??UNITS ?REF RANGE ??LAB ?? Clinician Provided Cytology Information ?? Source.............Cervix;Endocervix ?? No. of containers..01 ThinPrep Vial Age Algo ACOG Meagan... ??30-65 ? 01 ?FLAG LEGEND: ?L-Low Normal,H-High Normal,LL-Alert Low,HH-Alert High <-Panic Low,>-Panic High,A-Abnormal,AA-Critical Abnormal Performed at: 01 =G ?[facility] ?? [address] [place], [place] ??[address] ?? Niki Mendoza MD, IGP, APTIMA HPV, RFX 16/18,45Note.TBHComment: ?? TESTS ? RESULT ??FLAG ??UNITS ?REF RANGE ??LAB DIAGNOSIS: ?02 ?? NEGATIVE FOR INTRAEPITHELIAL LESION OR MALIGNANCY. Specimen adequacy: ?02 ?? Satisfactory for evaluation. ??Endocervical and/or squamous metaplastic ?? cells (endocervical component) are present. Performed by: ? 02 ?? N[employer] Director (ASCP) . ? 02 Note: ? Note ?02 ?? The Pap smear is a screening test designed to aid in the ?? detection of premalignant and malignant conditions of the ?? uterine cervix. ??It is not a diagnostic procedure and ?? should not be used as the sole means of detecting cervical ?? cancer. ??Both false-positive and false-negative reports do ?? occur. Test Methodology: ? Note ?02 ?? This liquid based ThinPrep(R) pap test was screened with ?? the use of an image guided system. HPV Genotype Reflex ?? Note ?02 ?? Criteria not met, HPV Genotype not performed. ?FLAG LEGEND: ?L-Low Normal,H-High Normal,LL-Alert Low,HH-Alert High <-Panic Low,>-Panic High,A-Abnormal,AA-Critical Abnormal Performed at: 02 WB ?[facility] ?? [address] [place], [place] ??[address] ?? Niki Mendoza MD, HPV APTIMANegativeNegativeTBHComment: This nucleic acid amplification test detects fourteen high- risk HPV types (16,18,31,33,35,39,45,51,52,56,58,59,66,68) without differentiation. Performed at: ??=G - [facility] [address] ??[id number] Railcar Mechanic: Niki Mendoza MD, Phone: ??[phone] Performed at: ??WB - [facility] ??[id number] Railcar Mechanic: Niki Mendoza MD, Phone: ??[phone] Specimen (Source)Anatomical Location / LateralityCollection Method / Volume Collection TimeReceived Time12/05/2024 8:24 AM EDT12/05/2024 12:36 PM EDT Narrative [facility] - 12/07/2024 1:09 PM EDT BRUSH-SPATULA CERVIX ENDOCERVIX Authorizing ProviderResult TypeResult StatusCorehaydee Arrieta DOLAB BLOOD ORDERABLES Final ResultPerforming OrganizationAddressCity/State/ZIP CodePhone Number [facility] * Pap Smear (12/05/2024 12:00 AM EDT)Specimen (Source)Anatomical Location / LateralityCollection Method / VolumeCollection TimeReceived TimeSwabCervical swab / Unknown Narrative Authorizing ProviderResult TypeResult StatusFazio Nurse [facility] ObLAB CYTOLOGY ORDERABLESFinal ResultPerforming OrganizationAddressCity/State/ZIP CodePhone Number EXTERNAL LAB from Last 3 Months Insurance Care Teams Team MemberRelationshipSpecialtyStart DateEnd Date Kristie Yi NP [address] [place] [address] [facility]11/27/24
--- OUTSIDE RECORDS SUMMARY | 2025-03-01 08:46 | XMS_ITS | Clinical Summary ---
Author Organization [facility] Address [address] [place] [address] Care Team Providers Care Executive Services Administrator Name Role Phone Unavailable Primary Care Provider Unavailabl e Social History Tobacco UseTypesPacks/DayYears UsedDateSmoking Tobacco: Never Assessed CommentsUnknownSex and Gender InformationValueDate RecordedSex Assigned at Not on fileLegal JdzPzcpmd11/02/2012 8:17 AM ESTGender IdentityNot on fileSexual OrientationNot on file Plan of Treatment Health MaintenanceDue DateLast DoneCommentsAnxiety Bxfnrfely94/03/2002Depression Rvqdowdzs95/03/2002HIV Olvixfggy05/03/2002Hepatitis C Gnhkmadar96/03/2002 DTaP,Tdap,Td Vaccine (1 - Tdap)09/28/2002Hepatitis B Vaccine (1 of 3 - 19+ 3- dose series)09/28/2002Cervical Cancer Xfqxfywft01/03/2005HPV Vaccine (1 - 3-dose SCDM series)09/28/2010Mammogram Cwvvuvuoi61/03/2024Covid-19 Vaccine (2024- season)2024Influenza Vaccine (#1)2024 Insurance MemberSubscriberPlan / Payer (Effective 2021-Present)Name:Amna Alvarez Relation to Subscriber:SelfName:Amna Alvarez Payer ID:[id number] (NAIC) Group ID:Not on file Type:SKYE Address: [address] [place] [id number]
--- OUTSIDE RECORDS SUMMARY | 2025-03-01 08:46 | XMS_ITS | Encounter Summary ---
Author Organization [facility] Address [address] [place] [address] Care Team Providers Care Nitrocellulose Maker Name Role Phone Kristie Yi NP Primary Care Provider [phone] Encounter Details DateTypeDepartmentCare Team (Latest Contact Info)Qqeszesnobh71/20/2025amboo flowsheet NOMAshutosh MURDOCK [address] [place] [address] Dawson Arrieta DO [address] [facility] [address] [place], [facility]11 Social History Tobacco UseTypesPacks/DayYears UsedDateSmoking Tobacco: Never Assessed CommentsUnknownSex and Gender InformationValueDate RecordedSex Assigned at Gllnrj8710/14/2022 3:27 PM EDTLegal JtwLlvwxq10/15/2023 6:35 PM EDTGender Identity Tknhdb2010/14/2022 3:27 PM EDTSexual NrufcjwqeuqBqtjtgad97/19/2023 3:27 PM EDT documented as of this encounter Plan of Treatment DateTypeDepartmentCare Team (Latest Contact Info)Mkndshcdmin01/29/2025 1:30 PM ESTOffice Visit DION MURDOCK [address] [place] [address] Jeanne Palomino PA [address] [facility] [address] [place], [facility]11 documented as of this encounter Visit Diagnoses Not on filedocumented in this encounter Care Teams Team MemberRelationshipSpecialtyStart DateEnd Date Kristie Yi NP [address] [place] [address] PCP - General11/27/24documented as of this encounter
[2025-03-01 09:50] LABS: Hematocrit 37.3 % (36.0-48.0); Hemoglobin 12.8 g/dL (12.0-16.0); Immature Granulocytes Abs Auto 0.01 10^3/uL (0.00-0.03); Immature Granulocytes Pct Auto 0.2 % (0.0-0.5); Lymphocytes Absolute Auto 1.8 10^3/uL (1.2-3.8); Mean Corpuscular HGB Conc 34.3 g/dL (29.9-35.2); Mean Corpuscular Hemoglobin 29.1 pg (26.7-34.0); Mean Corpuscular Volume 84.8 fL (81.0-99.0); Platelet Count 207 10^3/uL (150-450); Red Blood Count 4.40 10^6/uL (4.20-5.40); White Blood Count 5.0 10^3/uL (4.0-11.0)
[2025-03-01 09:52] LABS: Alanine Aminotransferase 26 U/L (14-59); Albumin Globulin Ratio 1.2; Albumin Level 3.7 g/dL (3.4-5.0); Alkaline Phosphatase 45 U/L (46-116); Anion Gap 9.5; Aspartate Amino Transferase 11 U/L (15-37); Blood Urea Nitrogen 11.0 mg/dL (7.0-18.0); Calcium 8.7 mg/dL (8.5-10.1); Carbon Dioxide 28.8 mmol/L (21.0-32.0); Chloride 105 mmol/L (98-107); Estimated GFR (African America >60 (>=60 mL/min/1.73m^2); Estimated GFR (Non-African Ame >60 (>=60 mL/min/1.73m^2); Globulin 3.0 g/dL; Glucose 70 mg/dL (74-106); Potassium 4.3 mmol/L (3.5-5.1); Sodium 139 mmol/L (136-145); Total Protein 6.7 g/dL (6.4-8.2)
[2025-03-01 09:58] LABS: INR 1.01; Partial Thromboplastin Time 26.0 sec (22.3-36.2); Prothrombin Time 10.6 sec (9.0-11.6)
== END 2025-03-01 08:44 | disposition home or self-care (01) ==
LOC: PST 08:43
PROVIDERS: PCP Nurse Practitioner; Visit Provider Obstetrics & Gynecology
DX: Z01.812 Encounter for preprocedural laboratory examination (principal); N92.1 Excessive and frequent menstruation with irregular cycle; R10.20 Pelvic and perineal pain unspecified side; N94.6 Dysmenorrhea, unspecified; N94.10 Unspecified dyspareunia
CPT/HCPCS: 36415; 80048; 80076; 85025; 85610; 85730; 86850; 86900; 86901

== ENCOUNTER 2025-03-15 06:11 | Day surgery (SDC) | payer BC, SELFPAY ==
[2025-03-01 09:34] VITALS: BP 125/70; PULSE 69; TEMP 36.9; O2SAT 100; BMI 27.1
[2025-03-15] VITALS (20 sets, daily range): BP systolic 86–106; BP diastolic 55–77; PULSE 58–152; TEMP 36.4–36.6; O2SAT 86–100; BMI 26.7
--- OUTSIDE RECORDS SUMMARY | 2025-03-15 06:16 | XMS_ITS | Encounter Summary ---
Author Organization [facility] Address [address] [place] [address] Care Team Providers Care Rocket Motor Mechanic Name Role Phone Kristie Yi NP Primary Care Provider [phone] Encounter Details DateTypeDepartmentCare Team (Latest Contact Info)Jgsernkhqur76/04/2025linisync Result Encounter NOMS External Department Unsolicited Dawson Arrieta DO [address] Marie Concepcion, [facility] Social History Tobacco UseTypesPacks/DayYears UsedDateSmoking Tobacco: Never Assessed CommentsNoSex and Gender InformationValueDate RecordedSex Assigned at Jwlvsz7210/14/2022 3:27 PM EDTLegal UydFhfkqe19/15/2023 6:35 PM EDTGender Identity Grdwvl4110/14/2022 3:27 PM EDTSexual OxwmzjkxldfVoaebhuo52/19/2023 3:27 PM EDT documented as of this encounter Plan of Treatment DateTypeDepartmentCare Team (Latest Contact Info)Dtbcrtepolq76/29/2025 1:30 PM ESTOffice Visit N[facility] Carlene OBGYSaeed [address] [place] [address] Jeanne Palomino PA [address] [place], [facility]11 documented as of this encounter Procedures Procedure NamePriorityDate/TimeAssociated DiagnosisCommentsSRMCOH PROTHROMBIN TIME INR W/O IANYXmrgelt26/04/2025 9:30 AM EST HMHP LIVER FFJJYQqktenp52/04/2025 9:30 AM EST CCF YFPIRwyhclc76/04/2025 9:30 AM EST ALL TYPE AND SVUOMZOcovmty82/04/2025 9:30 AM EST ALL CBC WITH AUTO RIMIIzltzai24/04/2025 9:30 AM EST ALL BASIC METABOLIC ESJJXGxuztwb81/04/2025 9:30 AM EST documented in this encounter Results * ALL TYPE AND SCREEN (03/01/2025 9:30 AM EST)ComponentValueRef RangeTest Method Analysis TimePerformed AtPathologist SignatureBLOOD TYPEA PositiveTBHANTIBODY SCREENNEGATIVETBHSpecimen (Source)Anatomical Location / LateralityCollection Method / VolumeCollection TimeReceived Time03/01/2025 9:30 AM EST03/01/2025 9:34 AM EST Narrative [facility] - 03/01/2025 10:53 AM EST [facility] , ?? Authorizing ProviderResult TypeResult StatusCorey Berny DOCLINISYNCFinal Result Performing OrganizationAddressCity/State/ZIP CodePhone Number [facility]IN[facility]NC [facility] * (ABNORMAL) ALL BASIC METABOLIC PANEL (03/01/2025 9:30 AM EST)ComponentValueRef RangeTest MethodAnalysis TimePerformed AtPathologist LsveembdiZRVMYT934753 - 145 mmol/LTBHPOTASSIUM4.33.5 - 5.1 mmol/QGQMZTHZMUIR88122 - 107 mmol/LTBH [place] GBKBPWS78.821.0 - 32.0 mmol/LTBHANION GAP9.8ZIQVVIRYHP36(L)74 - 106 mg/dLTBHBLOOD UREA OGLVAPUN44.07.0 - 18.0 mg/dLTBHCREATININE0.960.55 - 1.02 mg/dLTBHTBH EGFR-AF PANAMANIAN>60>=60 mL/min/1.73m 2TBHTBH EGFR-NON AF PANAMANIAN >60>=60 mL/min/1.73m 2TBHBUN CREATININE RATIO11.4YSDZITKGSY1.78.5 - 10.1 mg/dL TBHSpecimen (Source)Anatomical Location / LateralityCollection Method / Volume Collection TimeReceived Time03/01/2025 9:30 AM EST03/01/2025 9:34 AM EST Narrative [facility] - 03/01/2025 10:03 AM EST Authorizing ProviderResult TypeResult StatusCorey Berny DOCLINISYNCFinal Result Performing OrganizationAddressCity/State/ZIP CodePhone Number [facility] * (ABNORMAL) [facility] LIVER PANEL (03/01/2025 9:30 AM EST)ComponentValueRef Range Test MethodAnalysis TimePerformed AtPathologist SignatureBILIRUBIN TOTAL0.50.2 - 1.0 mg/dLTBHBILIRUBIN DIRECT0.10.0 - 0.2 mg/dLTBHASPARTATE AMINO TRANSFERASE 11(L)15 - 37 U/LTBHALANINE JHPDSRXDIHFCPJPD3117 - 59 U/LTBHALKALINE ZHUXOLWCUFO53(L)46 - 116 U/LTBHTOTAL PROTEIN6.76.4 - 8.2 g/dLTBHALBUMIN LEVEL 3.73.4 - 5.0 g/dLTBHGLOBULIN3.0g/dLTBHALBUMIN GLOBULIN RATIO1.2TBHSpecimen (Source)Anatomical Location / LateralityCollection Method / VolumeCollection TimeReceived Time03/01/2025 9:30 AM EST03/01/2025 9:34 AM EST Narrative [facility] - 03/01/2025 10:03 AM EST Authorizing ProviderResult TypeResult StatusCorey Berny DOCLINISYNCFinal Result Performing OrganizationAddressty/State/ZIP CodePhone Number [facility] * CCF APTT (03/01/2025 9:30 AM EST)ComponentValueRef RangeTest MethodAnalysis TimePerformed AtPathologist SignaturePARTIAL THROMBOPLASTIN TIME26.022.3 - 36.2 secTBHSpecimen (Source)Anatomical Location / LateralityCollection Method / VolumeCollection TimeReceived Time03/01/2025 9:30 AM EST03/01/2025 9:34 AM EST Narrative [facility] - 03/01/2025 10:00 AM EST Authorizing ProviderResult TypeResult StatusCorey Berny DOCLINISYNCFinal Result Performing OrganizationAddressCity/State/ZIP CodePhone Number [facility] * SRMCOH PROTHROMBIN TIME INR W/O COUM (03/01/2025 9:30 AM EST)ComponentValueRef RangeTest MethodAnalysis TimePerformed AtPathologist SignaturePROTHROMBIN TIME 10.69.0 - 11.6 secTTB INR1.01TBHComment: DESIRED INR: 2.0-3.0 CONDITIONS NOT LISTED BELOW 2.5-3.5 FOR PROSTHETIC HEART VALVE REPLACEMENT 2.5-3.5 RECURRENT THROMBOSIS Specimen (Source)Anatomical Location / LateralityCollection Method / Volume Collection TimeReceived Time03/01/2025 9:30 AM EST03/01/2025 9:34 AM EST Narrative [facility] - 03/01/2025 10:00 AM EST Authorizing ProviderResult TypeResult StatusCorey Berny DOCLINISYNCFinal Result Performing OrganizationAddressCity/State/ZIP CodePhone Number [facility] * ALL CBC WITH AUTO DIFF (03/01/2025 9:30 AM EST)ComponentValueRef RangeTest MethodAnalysis TimePerformed AtPathologist SignatureTBH WBC5.04.0 - 11.0 10 3/uLTBHTBH RBC4.404.20 - 5.40 10 6/uLTBHTBH HGB12.812.0 - 16.0 g/dLTBHTBH HCT 37.336.0 - 48.0 %TBHTBH MCV84.881.0 - 99.0 fLTBHTBH MCH29.126.7 - 34.0 pgTBH TBH MCHC34.329.9 - 35.2 g/dLTBHTBH RDW12.011.0 - 15.0 %TBHTBH AGG159227 - 450 10 3/uLTBHTBH MPV10.49.5 - 13.5 fLTBHNEUTROPHILS PERCENT AUTO53.443.0 - 75.0 % TBHLYMPHOCYTES PERCENT AUTO35.520.5 - 60.0 %TBHMONOCYTES PERCENT AUTO6.91.7 - 12.0 %TBHTBH EO %3.20.9 - 7.0 %TBHBASOPHILS PERCENT AUTO0.80.2 - 2.0 %TBH IMMATURE GRANULOCYTES PCT AUTO0.20.0 - 0.5 %TBHNEUTROPHILS ABSOLUTE AUTO2.71.4 - 6.5 10 3/uLTBHLYMPHOCYTES ABSOLUTE AUTO1.81.2 - 3.8 10 3/uLTBHMONOCYTES ABSOLUTE AUTO0.40.3 - 0.8 10 3/uLTBHTBH EO #0.20.0 - 0.7 10 3/uLTBHBASOPHILS ABSOLUTE AUTO0.00.0 - 0.1 10 3/uLTBHIMMATURE GRANULOCYTES ABS AUTO0.010.00 - 0.03 10 3/uLTBHSpecimen (Source)Anatomical Location / LateralityCollection Method / VolumeCollection TimeReceived Time03/01/2025 9:30 AM EST03/01/2025 9:34 AM EST Narrative [facility] - 03/01/2025 9:54 AM EST Authorizing ProviderResult TypeResult StatusCorey Berny DOCLINISYNCFinal Result Performing OrganizationAddressCity/State/ZIP CodePhone Number [facility] documented in this encounter Visit Diagnoses Not on filedocumented in this encounter Care Teams Team MemberRelationshipSpecialtyStart DateEnd Date Kristie Yi NP [address] [place] [address] PCP - General11/27/24documented as of this encounter
--- OUTSIDE RECORDS SUMMARY | 2025-03-15 06:16 | XMS_ITS | Clinical Summary ---
Author Organization [facility] Address [address] [place] [address] Care Team Providers Care Freight Router Name Role Phone Kristie Yi NP Primary Care Provider [phone] Allergies Active AllergyReactionsCriticalityNoted DateCommentsIodinated Contrast Media Swelling,CtwoxvjsqjAhcw15/20/2021Oxycodone-AcetaminophenGI intoleranceLow 07/31/2012 Medications MedicationSigDispense QuantityRefillsLast FilledStart DateEnd DateStatus omeprazole (PriLOSEC) [address] capsule Take 40 mg by mouth DailyActive hydrOXYzine HCl (Atarax) 10 MG tablet TAKE 2 TABLETS BY MOUTH THREE TIMES DAILY NEEDED FOR ANXIETYActive DayVigo 5 MG tablet Take 5 mg by mouth at vgicvdt42/13/2025Active lisdexamfetamine (Vyvanse) 40 MG capsule Take 40 mg by mouth Daily5Active amphetamine-dextroamphetamine (Adderall) 5 MG tablet TAKE 1 TABLET BY MOUTH ONCE DAILY WITH LUNCH5Active Active Problems ProblemNoted DateDiagnosed DateMenorrhagia with irregular cycle02/15/2025History of endometrial vabtvqav63/20/2025 Encounters DateTypeDepartmentCare TsgkHztxgnhtpch24/04/2025linisync Result Encounter NOMS External Department Unsolicited Dawson Arrieta DO 02/15/2025 9:50 AM ESTConsult NOMAshutosh [facility]cepcion [facility] [address] [place] [address] [place] [phone] Dawson Arrieta DO Menorrhagia with irregular cycle; History of endometrial dpdlinqp18/20/2025amboo flowsheet [facility] Carlene MURDOCK [address] [place] [phone] Dawson Arrieta DO 02/14/20250959Cllaxa34/22/2025 10:30 AM EDTAncillary Procedure [facility] Carlene MURDOCK [address] [place] [phone] Menorrhagia with irregular cyclefrom Last 3 Months Social History Tobacco UseTypesPacks/DayYears UsedDateSmoking Tobacco: Never Assessed CommentsNoSex and Gender InformationValueDate RecordedSex Assigned at Yromkr2710/14/2022 3:27 PM EDTLegal QvjFokbds94/15/2023 6:35 PM EDTGender Identity Pxkvjy4810/14/2022 3:27 PM EDTSexual DcfrkzxdgzxPortryat62/19/2023 3:27 PM EDT Last Filed Vital Signs Vital SignReadingTime TakenCommentsBlood Ohdwrtkj757/80104/17/2024 9:51 AM EST Pulse--Temperature--Respiratory Rate--Oxygen Saturation--Inhaled Oxygen Concentration--Mxktkk60 kg (169 lb 12 oz)02/15/2025 9:51 AM GMPThuiqs165.2 cm (5' 7 )04/05/2017 12:00 PM ESTBody Mass Index26.59004/05/2017 12:00 PM EST Plan of Treatment DateTypeDepartmentCare Team (Latest Contact Info)Wtmmlktkxcj06/29/2025 1:30 PM ESTOffice Visit [facility] Carlene MURDOCK [address] [place] [phone] Jeanne Palomino PA [address] [place] [address] Procedures Procedure NamePriorityDate/TimeAssociated DiagnosisCommentsALL TYPE AND SCREEN Vwtrggt6303/01/2025 9:30 AM EST ALL BASIC METABOLIC MAIPFFouxxqt53/04/2025 9:30 AM EST HMHP LIVER UOQSGUcisiqa87/04/2025 9:30 AM EST CCF JTCUIclcnoc10/04/2025 9:30 AM EST SRMCOH PROTHROMBIN TIME INR W/O MMMBCkbklnu26/04/2025 9:30 AM EST ALL CBC WITH AUTO KNPQPuuxoih64/04/2025 9:30 AM EST US PELVIC COMPLETE W/ IYPuxcclx04/22/2025 10:42 AM EDT Menorrhagia with irregular cycle from Last 3 Months Results * SRMCOH PROTHROMBIN TIME INR W/O COUM (03/01/2025 9:30 AM EST)ComponentValueRef RangeTest MethodAnalysis TimePerformed AtPathologist SignaturePROTHROMBIN TIME 10.69.0 - 11.6 secTBHTBH INR1.01TBHComment: DESIRED INR: 2.0-3.0 CONDITIONS NOT LISTED BELOW 2.5-3.5 FOR PROSTHETIC HEART VALVE REPLACEMENT 2.5-3.5 RECURRENT THROMBOSIS Specimen (Source)Anatomical Location / LateralityCollection Method / Volume Collection TimeReceived Time03/01/2025 9:30 AM EST03/01/2025 9:34 AM EST Narrative [facility] - 03/01/2025 10:00 AM EST Authorizing ProviderResult TypeResult StatusCorey Berny DOCLINISYNCFinal Result Performing OrganizationAddressCity/State/ZIP CodePhone Number [facility] * (ABNORMAL) [facility] LIVER PANEL (03/01/2025 9:30 AM EST)ComponentValueRef Range Test MethodAnalysis TimePerformed AtPathologist SignatureBILIRUBIN TOTAL0.50.2 - 1.0 mg/dLTBHBILIRUBIN DIRECT0.10.0 - 0.2 mg/dLTBHASPARTATE AMINO TRANSFERASE 11(L)15 - 37 U/LTBHALANINE DHOONHUKBHFDOART2204 - 59 U/LTBHALKALINE LHSYPZFOFZJ93(L)46 - 116 U/LTBHTOTAL PROTEIN6.76.4 - 8.2 g/dLTBHALBUMIN LEVEL 3.73.4 - 5.0 g/dLTBHGLOBULIN3.0g/dLTBHALBUMIN GLOBULIN RATIO1.2TBHSpecimen (Source)Anatomical Location / LateralityCollection Method / VolumeCollection TimeReceived Time03/01/2025 9:30 AM EST03/01/2025 9:34 AM EST Narrative [facility] - 03/01/2025 10:03 AM EST Authorizing ProviderResult TypeResult StatusCorey Berny DOCLINISYNCFinal Result Performing OrganizationAddressCity/State/ZIP CodePhone Number [facility] * CCF APTT (03/01/2025 9:30 AM EST)ComponentValueRef RangeTest MethodAnalysis TimePerformed AtPathologist SignaturePARTIAL THROMBOPLASTIN TIME26.022.3 - 36.2 secTBHSpecimen (Source)Anatomical Location / LateralityCollection Method / VolumeCollection TimeReceived Time03/01/2025 9:30 AM EST03/01/2025 9:34 AM EST Narrative [facility] - 03/01/2025 10:00 AM EST Authorizing ProviderResult TypeResult StatusCorey Berny DOCLINISYNCFinal Result Performing OrganizationAddressCity/State/ZIP CodePhone Number [facility] * ALL TYPE AND SCREEN (03/01/2025 9:30 AM EST)ComponentValueRef RangeTest Method Analysis TimePerformed AtPathologist SignatureBLOOD TYPEA PositiveTBHANTIBODY SCREENNEGATIVETBHSpecimen (Source)Anatomical Location / LateralityCollection Method / VolumeCollection TimeReceived Time03/01/2025 9:30 AM EST03/01/2025 9:34 AM EST Narrative CLIN[facility]YNC - 03/01/2025 10:53 AM EST [facility] , ?? Authorizing ProviderResult TypeResult StatusCorey Berny DOCLINISYNCFinal Result Performing OrganizationAddMount [facility]/State/ZIP CodePhone Number [facility] * ALL CBC WITH AUTO DIFF (03/01/2025 9:30 AM EST)ComponentValueRef RangeTest MethodAnalysis TimePerformed AtPathologist SignatureTBH WBC5.04.0 - 11.0 10 3/uLTBHTBH RBC4.404.20 - 5.40 10 6/uLTBHTBH HGB12.812.0 - 16.0 g/dLTBHTBH HCT 37.336.0 - 48.0 %TBHTBH MCV84.881.0 - 99.0 fLTBHTBH MCH29.126.7 - 34.0 pgTBH TBH MCHC34.329.9 - 35.2 g/dLTBHTBH RDW12.011.0 - 15.0 %TBHTBH USW006229 - 450 10 3/uLTBHTBH MPV10.49.5 - 13.5 [...] DOCLINISYNCFinal Result Performing OrganizationAddressCity/State/ZIP CodePhone Number [facility] * (ABNORMAL) ALL BASIC METABOLIC PANEL (03/01/2025 9:30 AM EST)ComponentValueRef RangeTest MethodAnalysis TimePerformed AtPathologist BqpgrbvawKDZFVW017473 - 145 mmol/LTBHPOTASSIUM4.33.5 - 5.1 mmol/LKEFIRIUTUUA50148 - 107 mmol/LTBH [place] OVQISBT06.821.0 - 32.0 mmol/LTBHANION GAP9.9YOKCHJEDAO48(L)74 - 106 mg/dLTBHBLOOD UREA UNTSGAUC81.07.0 - 18.0 mg/dLTBHCREATININE0.960.55 - 1.02 mg/dLTBHTBH EGFR-AF [place]GI[place]>60>=60 mL/min/1.73m 2TBHTBH EGFR-NON AF [place]GIAN >60>=60 mL/min/1.73m 2TBHBUN CREATININE RATIO11.2UMESNRIPJL2.78.5 - 10.1 mg/dL TBHSpecimen (Source)Anatomical Location / LateralityCollection Method / Volume Collection TimeReceived Time03/01/2025 9:30 AM EST03/01/2025 9:34 AM EST Narrative [facility] - 03/01/2025 10:03 AM EST Authorizing ProviderResult TypeResult StatusCorey Berny DOCLINISYNCFinal Result Performing OrganizationAddressCity/State/[facility] CodePhone Number [facility] * Pelvis w/ TV (12/18/2024 10:42 AM EDT)Anatomical [...] appears unremarkable. No fluid is seen within uepjnb-up-jwk. Both ovaries appear normal for this age. IMPRESSION: Normal pelvic ultrasound TRANSCRIBED BY: ELECTRONICALLY SIGNED BY: Stef Rubi MD Authorizing ProviderResult TypeResult StatusCorey Berny DOITUL[facility] [place] PROCEDURESFinal Result from Last 3 Months Insurance Care Teams Team MemberRelationshipSpecialtyStart DateEnd Date Kristie Yi NP [address] [place] [address] [facility]11/27/24
--- OUTSIDE RECORDS SUMMARY | 2025-03-15 06:16 | XMS_ITS | Clinical Summary ---
Author Organization [facility] Address [id number] [address] [place] [address] Care Team Providers Care Field Project Manager Name Role Phone Cipriano Sawyer MD Primary Care Provider [phone] Allergies Active AllergyReactionsCriticalityNoted DateCommentsIodinated Contrast Media ZfqibfoyzdGnmf73/20/2021Oxycodone-EyiojotivmrxbDsrqxlxrJbv12/05/2013 Medications MedicationSigDispense QuantityRefillsLast FilledStart DateEnd DateStatus LORazepam [...] InformationValueDate RecordedSex Assigned at BirthNot on fileLegal XbwItyxdi51/20/2021 8:39 PM EDT Gender IdentityNot on fileSexual OrientationNot on file Last Filed Vital Signs Vital SignReadingTime TakenCommentsBlood Yozqrhid400/8911/15/2020 10:09 PM EDT Cfkoy100611/15/2020 10:50 PM SZPNbmxwgnnnrb83.7 ??C (98.1 ??F)11/15/2020 8:42 PM EDTRespiratory Nkuu1430 10:50 PM EDTOxygen Sgkyzuaahb36%11/15/2020 10:09 PM EDTInhaled Oxygen Concentration--Dfsiyy76.6 kg (180 lb)11/15/2020 8:42 PM EDT Mseice976.2 cm (5' 7 )11/15/2020 8:42 PM EDTBody Mass Index28.19011/15/2020 8:42 PM EDT Plan of Treatment Health MaintenanceDue DateLast DoneCommentsDepression Nrhwktosw87/03/1996Tobacco Dhmbwymjl58/03/1996Adult BMI Fmhapdrcn32/03/2002DTaP,Tdap and Td Vaccines (1 - Tdap)09/28/2002Pap Smear09/28/2004Influenza Lormcki6611/27/2024 Medical Devices Not on file Insurance Care Teams Team MemberRelationshipSpecialtyStart DateEnd Cipriano Sawyer MD [address] [place] [address] PCP - GeneralFamily Medicine11/15/20
--- OUTSIDE RECORDS SUMMARY | 2025-03-15 06:16 | XMS_ITS | Clinical Summary ---
Author Organization [facility] Address [address] [place] [address] Care Team Providers Care Consumer Safety Inspector Name Role Phone Unavailable Primary Care Provider Unavailabl e Social History Tobacco UseTypesPacks/DayYears UsedDateSmoking Tobacco: Never Assessed CommentsUnknownSex and Gender InformationValueDate RecordedSex Assigned at Not on fileLegal ZsgKpjgav10/02/2012 8:17 AM ESTGender IdentityNot on fileSexual OrientationNot on file Plan of Treatment Health MaintenanceDue DateLast DoneCommentsAnxiety Azhcfcdju41/03/2002Depression Weoskmhsi47/03/2002HIV Pzqldaqdc96/03/2002Hepatitis C Lmagofdjq99/03/2002 DTaP,Tdap,Td Vaccine (1 - Tdap)09/28/2002Hepatitis B Vaccine (1 of 3 - 19+ 3- dose series)09/28/2002Cervical Cancer Lvpvodcwh47/03/2005HPV Vaccine (1 - 3-dose SCDM series)09/28/2010Mammogram Qpdzadhce78/03/2024Covid-19 Vaccine ( - 2024- season)2024Influenza Vaccine (#1)2024 Insurance MemberSubscriberPlan / Payer (Effective 2021-Present)Name:Amna Alvarez Relation to Subscriber:SelfName:Amna Alvarez Payer ID:[id number] (NAIC) Group ID:Not on file Type:SKYE Address: [address] [place] [id number]
[2025-03-15 06:20] LABS: Hematocrit 39.7 % (36.0-48.0); Hemoglobin 13.7 g/dL (12.0-16.0); Immature Granulocytes Abs Auto 0.01 10^3/uL (0.00-0.03); Immature Granulocytes Pct Auto 0.3 % (0.0-0.5); Lymphocytes Absolute Auto 1.4 10^3/uL (1.2-3.8); Mean Corpuscular HGB Conc 34.5 g/dL (29.9-35.2); Mean Corpuscular Hemoglobin 29.1 pg (26.7-34.0); Mean Corpuscular Volume 84.5 fL (81.0-99.0); Platelet Count 165 10^3/uL (150-450); Red Blood Count 4.70 10^6/uL (4.20-5.40); White Blood Count 4.0 10^3/uL (4.0-11.0)
[2025-03-15] MEDS: CEFAZOLIN SODIUM 1 GM/50 ML D5W PREMIX IV (07:36)
--- NOTE | 2025-03-15 09:33 | P.ON_ITS ---
Brief Operative Note Date of procedure: 03/15/25 Pre-op diagnosis general: pelvic pain, aub, dysmenorrhea, dyspareunia, bilateral ovarian cyst Post-op diagnosis: same as pre-op Procedure: NAME OF PROCEDURE: [ ]Total abdominal hysterectomy, bilateral salpingectomy with cystoscopy. bilateral ovarian cystectomy PROCEDURE: Patient was taken back to the Operating Room where she was given general anesthesia without difficulty. She was then prepped and draped in the normal sterile fashion. A Pfannenstiel skin incision was then made 2 cm above the symphysis and pubis and carried down to underlying rectus fascia using a Bovie. The fascia was incised in the midline and extended bilaterally using Lucas scissors. Two Martha clamps were placed on the superior aspect of the fascia and dissected off the underlying rectus muscle. The same was performed on the inferior aspect as well. The muscle was then in the midline. The peritoneum was identified and entered bluntly. Peritoneum was then extended superiorly and inferiorly with good visualization of the bladder. An O'Upikpetc-Z-Butvpq retractor was placed into the patient's abdomen. The bowel was packed away with moist laparotomy sponges and the bladder blade was inserte d. A Leahey tenaculum was placed on the patient's uterus and used for retraction. LigaSure apparatus was then used to come across the mesosalpingx from the fimbriated end to the uteroovarian ligament on the patient's right side which was then cauterized and transected. TThis wascarried down serially through the broad ligament and across the round ligament. The bladder flap was then created using the Metzenbaum scissors, and thebladder was easily dissected off the patient's lower uterine segment. A curved Alina was placed across the uterine artery on the right side which was clamped, transected, and suture ligated using #0 Monocryl. This was performed on the contralateral side as well. The bladder was further dissected and a Zeppelin clamp was then placed across the uterosacral and cardinal ligaments. This was transected and suture ligated using #0 Monocryl. This was performed on the contralateral side as well. The uterus was then amputated using Fanta scissors. The patient's cuff was closed using #0 PDS in a running locked fashion and this was transfixed to the ipsilateral uterosacral and cardinal ligaments. Excellent hemostasis was assured. The patient's abdomen wascopiously irrigated using warm saline. please note bilateral ovarian cystectomy was performed using the vessel sealer, excellent hemostasis Cystoscopy was performed. Bladder was intact. Efflux was noted from both ostia. Cystoscope was removed.After excellent hemostasis was assured, all instruments were removed from the patient's abdomen. The patient's peritoneum was closed using 3-0 Vicryl in a running fashion. The patient's fascia was closed using #0 Vicryl in a running fashion. The patient's skin was closed using 4-0 vicryl on a verónica needle. The patient tolerated the procedure well. Sponge, lap, and needle counts were correct times two. Patient taken to the Recovery Room in stable condition Anesthesia: JONI Surgeon: Dawson Arrieta [facility] Practitioner: Sravanthi Novoa Estimated blood loss (mL): 50 Pathology: other (rt and lt ovarian cyst wall, uterus, tubes and cervix) Condition: stable Disposition: PACU Urinary Catheter Management Urinary Catheter Management Urethral: Cath placed during this visit: no
[2025-03-15] MEDS: CEFAZOLIN SODIUM/DEXTROSE,ISO 2 GM/50 ML PIGGYBACK IV (14:04)
[2025-03-15] MEDS: DOCUSATE SODIUM 100 MG CAPSULE PO (14:04)
[2025-03-15] MEDS: SIMETHICONE 80 MG TAB.CHEW PO (14:04)
[2025-03-15] MEDS: IBUPROFEN 400 MG TABLET 800 MG PO (14:04)
[2025-03-15] MEDS: PROMETHAZINE HCL 25 MG in 0.9 % SODIUM CHLORIDE 50 ML 204 MG IV (15:00)
[2025-03-15 15:11] LABS: Hemoglobin 12.7 g/dL (12.0-16.0)
--- NOTE | 2025-03-21 07:33 | P.ON_ITS ---
Brief Operative Note Date of procedure: 03/15/25 Pre-op diagnosis general: pelvic pain, dysmenorrhea, dyspareunia, aub Post-op diagnosis: same as pre-op Procedure: NAME OF PROCEDURE: ? Robotic assisted laparoscopic hysterectomy with cystoscopy, bilateral salpingectomy, bilateral ovarian cystectomy PROCEDURE:? The patient was taken back to the operating room, where she was prepped and draped in the normal sterile fashion after being placed in the dorsal lithotomy position.? Patient?s anesthesia was found to be adequate.? Surgical timeout was performed using two patient identifiers.? SCDs were on and in place.? Two grams of Ancef were given prior to the surgery.? Sterile Omer catheter was inserted.? Standard size VCare was secured to the uterine cervix and the surgeon changed gloves.? Attention then was turned to the patient's abdomen, where a supraumbilical incision was then made.? Two S retractors were used to identify the patient?s fascia.? The fascia was then tented up using Martha clamps and the patient?s fascia was incised sharply.? Patient?s abdomen was identified and entered bluntly.? The patient had the trocar placed and a pneumoperitoneum was obtained.? Approximately 4 liters of CO2 gas was used.? The camera was then placed through the trocar.? At this time, two robot trocars were placed in the patient?s left and right side, two hand widths from the midline, and this was placed under direct visualization.? The patient?s tube on the right side was tented up and the vessel sealer was then used to come across the mesosalpinx, and this was carried down to the uterine ovarian ligament.? The vessel sealer was carried down serially to the broad ligament, to the area of the bladder flap, which was then created anteriorly, and the uterine arteries were sk eletonized and sealed using the vessel sealer.? The colpotomy was made using the monopolar cautery on cut, and this was carried circumferentially, posteriorly to anteriorly, until the uterus was amputated.? The specimen was then removed intact through the vagina, without difficulty.? The vagina was then closed using two running V-Loc in a non-lock fashion.? The robot was undocked.? The abdomen was desufflated.? The skin defects were closed using 4-0 Vicryl.? Please note, the fascia was closed using 0 Vicryl.? Sponge, lap and needle counts were correct x2.? Patient was taken to recovery room in stable condition.? The patient was awakened by Anesthesia first.? Patient tolerated procedure well.??please note bilateral ovarian cystectomy was performed using the vessel sealer, excellent hemostasis was assured Anesthesia: JONI Surgeon: Dawson Arrieta Group Sales Representative: Sravanthi Novoa Estimated blood loss (mL): 50 Pathology: other (uterus, cervix, tubes and bilateral ovarian tissue) Condition: stable Disposition: PACU Urinary Catheter Management Urinary Catheter Management Urethral: Cath placed during this visit: no
== END 2025-03-15 16:20 | disposition home or self-care (01) ==
LOC: SURGOUT 10:54 → MS 10:55
PROVIDERS: PCP Nurse Practitioner; Visit Provider Obstetrics & Gynecology
PROC: (CPT 840; principal; 2025-03-15 07:30)
DX: N92.1 Excessive and frequent menstruation with irregular cycle (principal); R10.20 Pelvic and perineal pain unspecified side; Z98.890 Other specified postprocedural states; N94.6 Dysmenorrhea, unspecified; N94.10 Unspecified dyspareunia; N93.9 Abnormal uterine and vaginal bleeding, unspecified; N83.202 Unspecified ovarian cyst, left side; N83.201 Unspecified ovarian cyst, right side; Z98.51 Tubal ligation status; Z90.49 Acquired absence of other specified parts of digestive tract; Z87.891 Personal history of nicotine dependence; K21.9 Gastro-esophageal reflux disease without esophagitis; F41.9 Anxiety disorder, unspecified; F32.A Depression, unspecified; F43.10 Post-traumatic stress disorder, unspecified
CPT/HCPCS: 58571; 58662; 36415; 84702; 85018; 85025; 94667; J0131; J0690; J1100; J1171; J1885; J2003; J2250; J2405; J2550; J2704; J3010